=== PATIENT | female | born 1970 | race Caucasian/White ===

== ENCOUNTER → 2017-11-19 20:00 | Outpatient (CLI) | payer MEDICARE, SELFPAY | PROVIDERS: Family Provider Family Medicine; PCP Family Medicine | DX: G47.10 Hypersomnia, unspecified (principal); R06.83 Snoring | CPT/HCPCS: 95810; 95811 ==

== ENCOUNTER → 2017-12-21 20:00 | Outpatient (CLI) | payer MEDICARE, SELFPAY | PROVIDERS: Family Provider Family Medicine; PCP Family Medicine; Visit Provider Nurse Practitioner Acute Care | DX: G47.33 Obstructive sleep apnea (adult) (pediatric) (principal) | CPT/HCPCS: 95811 ==

== ENCOUNTER 2018-04-02 16:18 | Emergency (ER) | payer MEDICARE, SELFPAY ==
[2018-04-02 16:18] VITALS: BP 118/70; PULSE 77; RESP 15; TEMP 36.3; O2SAT 98; BMI 27.4
--- NOTE | 2018-04-02 16:28 | CT_ITS ---
STUDY: CT BRAIN WITHOUT CONTRAST REASON FOR EXAM: Female, 47 years old. Head injury RADIATION DOSAGE (If Supplied By Facility): CTDIvol = ( 44.99 ) mGy, DLP = ( 745.49 ) mGycm TECHNIQUE: Transaxial CT imaging of the brain was performed without administration of intravenous contrast material. Individualized dose optimization techniques were used for this CT. COMPARISON: None. FINDINGS: There is a scalp injury with subcutaneous air of the left frontal region. Normal calvarium. Normal size ventricles and extra-axial spaces for the patient's age. Normal white matter tracts of the cerebral hemispheres. Normal basal ganglia and thalami. Normal brainstem. Normal cerebellum. There is no intracranial hemorrhage. There are no findings of an acute ischemic infarction. There is mucosal thickening of the left maxillary sinus. CT/Brain/Head without Contrast IMPRESSION: Scalp injury with subcutaneous air of the left frontal region. Chronic left maxillary sinusitis. There is no intracranial hemorrhage or calvarial fracture. Electronically Signed: Sai Winters MD at 17:42 EDT , Service support ,
--- NOTE | 2018-04-02 16:48 | ED.DCSUM_ITS ---
- ER Visit Summary Date of Service: 04/02/18 Chief Complaint: [Head injury] History of Present Illness: The patient is a 47 F [presents to the emergency department with a head injury that occurred prior to arrival in the emergency department. Patient states that she accidentally slammed the car trunk on top of her head. No loss of consciousness. Patient did sustain a laceration. Patient is on Xarelto for history of DVT. Patient up-to-date on tetanus.] Physical Examination: [HEENT-PERRLA, EOMI. Cranial nerves II through XII grossly intact. TMs clear. Mucous membranes moist. No adenopathy. Patient has a 3 cm laceration over the frontal scalp that is well approximated. Small amount of blood oozing. No bony step-offs or depressions noted. No hemotympanum. Cardiovascular-regular rate and rhythm without murmur or ectopy Lungs-clear to auscultation, chest wall stable without crepitus or subcu emphysema Abdomen-normoactive bowel sounds, soft, nontender, no rebound or rigidity, no peritoneal signs. Extremities-intact ?4, normal range of motion, normal pulses, atraumatic] Test Results: [CT scan of the brain without contrast ordered and results of which are currently pending] Emergency Department Course and Treatment: [Laceration repair-wound sterilely draped and prepped. Using 1% lidocaine with epinephrine a total of 3 cc used to anesthetize the wound. Wound cleansed with Shur-Clens and irrigated with copious saline. Using 5-0 nylon a total of 4 single interrupted sutures placed with good wound edge approximation. Patient tolerated procedure well.] Treatment Plan: [Patient to have suture removal in 10 days. Patient may be discharged to home as long as her CT scan of her brain is unremarkable. Disposition: [Discharged to home in stable condition] Impression: [Closed head injury Scalp laceration 3 cm-simple repair] This note was generated with Digital [employer]ent dictation software. It may contain incorrect words, spelling, and punctuation that were not noted in review of the chart prior to signing ED Disposition - Plan for ED Patient: Chief Complaint: Laceration Referrals: Lazarus Bustos DO [Primary Care Provider] -
--- NOTE | 2018-04-02 16:48 | ED.DEP ---
ED Disposition - Plan for ED Patient: Chief Complaint: Laceration Instructions: ED Laceration Scalp Stitch Or Stap, ED Head Injury Closed Referrals: Lazarus Bustos DO [Primary Care Provider] - 10 Day for suture removal
== END 2018-04-02 18:01 | disposition home or self-care (01) ==
PROVIDERS: Emergency Provider Emergency Medicine; Family Provider Family Medicine; PCP Family Medicine
DX: S01.01XA Laceration without foreign body of scalp, initial encounter (principal); W22.8XXA Striking against or struck by other objects, initial encounter; Y93.9 Activity, unspecified; Y92.9 Unspecified place or not applicable; F32.9 Major depressive disorder, single episode, unspecified; Z86.718 Personal history of other venous thrombosis and embolism; Z79.01 Long term (current) use of anticoagulants; Z79.899 Other long term (current) drug therapy
CPT/HCPCS: 12002; 70450; 99282

== ENCOUNTER → 2018-10-27 13:44 | Outpatient (CLI) | payer MEDICARE, SELFPAY ==
[2018-10-27 15:21] LABS: Absolute Lymphocyte Count 2.43 X10^3/ul (0.83-4.51); Absolute Neutrophil Count 4.5 X10^3/uL (2.0-7.7); Basophil# 0.03 X10^3/uL; Basophil% 0.4 % (0-1); Eosinophil# 0.13 X10^3/uL; Eosinophils% 1.7 % (0-5); Hematocrit 40.3 % (37-47); Hemoglobin 13.2 g/dl (12.0-15.0); Lymphocyte # 2.43 X10^3/ul (4.0); Lymphocyte % 31.2 % (19-41); Mean Corp Hgb Conc 32.8 g/gl (32-36); Mean Corpuscular Hgb 31.4 pg (27.0-32.0); Mean Corpuscular Volume 95.7 fL (81-99); Mean Platelet Vol. 8.8 fl (6.2-12.0); Monocyte# 0.73 X10^3/uL; Monocyte% 9.4 % (0-10); Neutrophil # 4.46 X10^3/uL (2.7-7.7); Neutrophil % 57.2 % (47-70); Platelet Count 310 K/mm3 (150-450); RBC Distribution Width CV 12.6 % (11.6-14.6); RBC Distribution Width SD 43.6 fl (35.1-43.9); Red Blood Count 4.21 M/mm3 (4.2-5.4); White Blood Count 7.8 K/mm3 (4.4-11.0)
[2018-10-27 15:28] LABS: POSITIVE COUNT NO; POSITIVE DIFFERENTIAL NO; POSITIVE MORPHOLOGY NO
[2018-10-27 16:05] LABS: ALB/GLOB Ratio 0.9 RATIO (0.9-2.4); AST(SGOT) 21 U/L (15-37); Alanine Aminotransfer ALT/SGPT 24 U/L (13-56); Albumin, Serum 3.6 g/dL (3.2-5.0); Alkaline Phosphatase 76 U/L (45-117); Anion Gap 7 (5-15); BUN 14 mg/dL (7-18); BUN/Creat Ratio 21.9 RATIO (10-20); Calcium,Total 8.3 mg/dL (8.5-10.1); Chloride 107 mmol/L (98-107); Cholesterol 129 mg/dL (200); Creatinine, Serum 0.64 mg/dL (0.55-1.02); EST Glomerular Filtration Rate 106 mL/min (>60); Est Glom Filt Rate - Afr Amer 128 mL/min (>60); Globulin 3.9 g/dL (2.2-4.2); Glucose 72 mg/dL (74-106); High Density Lipoprotein 71 mg/dL; Potassium 3.9 mmol/L (3.5-5.1); Protein, Total 7.5 g/dL (6.4-8.2); Sodium Level 141 mmol/L (136-145); Triglycerides 31 mg/dL; Very Low Density Lipoprotein 6 mg/dL (5-40)
== END ==
PROVIDERS: Family Provider Family Medicine; PCP Family Medicine; Referring Provider Family Medicine; Visit Provider Family Medicine
DX: Z00.00 Encounter for general adult medical examination without abnormal findings (principal); D64.9 Anemia, unspecified; E78.5 Hyperlipidemia, unspecified
CPT/HCPCS: 36415; 80053; 80061; 85025

== ENCOUNTER → 2019-02-16 17:39 | Outpatient (CLI) | payer MEDICARE, SELFPAY ==
[2019-02-21 12:29] LABS: HPV Reflexed? NOT INDICATED
== END ==
PROVIDERS: Family Provider Family Medicine; PCP Family Medicine; Referring Provider Obstetrics & Gynecology; Visit Provider Obstetrics & Gynecology
DX: Z12.4 Encounter for screening for malignant neoplasm of cervix (principal)
CPT/HCPCS: 87624; 88175; G0145

== ENCOUNTER → 2019-03-13 17:11 | Outpatient (CLI) | payer MEDICARE, SELFPAY ==
--- NOTE | 2019-03-13 15:45 | EMB_PTH ---
PATIENT: EZ ELDER LOC: [facility] U#:[id number] AGE/SX: 55/F ROOM: RE03/13/[address]: Dr. Ted Cutler MD : 1970 BED: DIS: SPEC #: [id number] RECD: 03/13/19 17:11 STATUS: EMANUEL REAlex #: [id number] ADDY: 03/13/19 15:[address]: Ted Cutler DEPT: SURGICAL PATHOLOGY RECD BY: Bianca Marley ENTERED: 03/14/19 11:42 SP TYPE: ENDOM BX/C YEYO DR: Dr. Janeth Ferreira MD Tissues: Endometrium, NOS Procedures: Surgery Specimen Level IV HEADER OPERATION: Endometrial biopsy PRE-OP DIAGNOSIS: N93.6, N92.6 TISSUE SUBMITTED: Endometrial biopsy MICROSCOPIC DIAGNOSIS Endometrial biopsy: Weakly proliferative endometrium with glandular and stromal breakdown. SJ:aida 03/15/19 MICROSCOPIC DESCRIPTION Slides are reviewed. GROSS DESCRIPTION Received in fixative is one container labeled with the patient's name and designated EM biopsy. The specimen consists of multiple fragments of hemorrhagic soft tissue that in aggregate measure 1.5 x 1.5 x 0.1 cm. The specimen is totally submitted in one cassette. / SJ:aida 03/14/19 TC:5 CPT: 18478
== END ==
PROVIDERS: Family Provider Family Medicine; PCP Family Medicine; Referring Provider Obstetrics & Gynecology; Visit Provider Obstetrics & Gynecology
DX: N92.6 Irregular menstruation, unspecified (principal)
CPT/HCPCS: 88305

== ENCOUNTER → 2019-03-15 14:25 | Outpatient (CLI) | payer MEDICARE, SELFPAY ==
[2018-05-30 14:08] VITALS: BMI 27.2
--- NOTE | 2019-03-15 14:38 | BI_ITS ---
MAMMOGRAPHY - BILATERAL SCREENING REASON FOR EXAM: Female, 48 years old. Routine annual screening examination. PERTINENT HISTORY: Grandmother with breast cancer. TECHNIQUE: Digital bilateral breast agustin (3D mammographic acquisition) in the CC and MLO projections. 2-D mediolateral oblique (MLO) and craniocaudad (CC) views of both breasts were obtained. CAD: Full Field Digital Mammography with Computer Added Detection was performed. COMPARISON: Comparison is made with prior study dated February 02, 2017 and March 05, 2015. FINDINGS: Breast Composition: There are scattered areas of fibroglandular density. There are no dominant masses or suspicious calcifications. No other significant abnormalities are identified. There has been no significant change since the prior study. BI/SCREENING MAMM (CAD), BILAT IMPRESSION: Stable bilateral screening mammogram. Yearly follow-up mammogram recommended. (A) ASSESSMENT CATEGORY: BIRADS Category 1: Negative. A letter regarding these results will be sent to the patient by the facility within 30 days. Approximately 10% of breast cancers are not detected by mammography. A normal mammogram should not delay biopsy of a clinically suspicious abnormality. [id number] Electronically Signed: Frandy Rubio, at 9:43 EDT , Service support ,
== END ==
PROVIDERS: Family Provider Family Medicine; PCP Family Medicine; Referring Provider Obstetrics & Gynecology; Visit Provider Obstetrics & Gynecology
DX: Z12.31 Encounter for screening mammogram for malignant neoplasm of breast (principal)
CPT/HCPCS: 77063; 77067

== ENCOUNTER 2019-04-17 08:34 | Day surgery (SDC) | payer MEDICARE, SELFPAY ==
[2019-04-10 16:07] LABS: ALB/GLOB Ratio 0.9 RATIO (0.9-2.4); AST(SGOT) 24 U/L (15-37); Alanine Aminotransfer ALT/SGPT 23 U/L (13-56); Albumin, Serum 3.5 g/dL (3.2-5.0); Alkaline Phosphatase 71 U/L (45-117); Anion Gap 5 (5-15); BUN 13 mg/dL (7-18); Calcium,Total 8.2 mg/dL (8.5-10.1); Chloride 108 mmol/L (98-107); Creatinine, Serum 0.72 mg/dL (0.55-1.02); EST Glomerular Filtration Rate 92 mL/min (>60); Est Glom Filt Rate - Afr Amer 111 mL/min (>60); Globulin 4.1 g/dL (2.2-4.2); Glucose 75 mg/dL (74-106); Potassium 3.7 mmol/L (3.5-5.1); Protein, Total 7.6 g/dL (6.4-8.2); Sodium Level 142 mmol/L (136-145)
[2019-04-10 16:46] LABS: Hematocrit 39.3 % (37-47); Mean Corp Hgb Conc 33.1 g/gl (32-36); Mean Corpuscular Hgb 31.4 pg (27.0-32.0); Mean Corpuscular Volume 94.9 fL (81-99); Mean Platelet Vol. 8.8 fl (6.2-12.0); Platelet Count 326 K/mm3 (150-450); RBC Distribution Width CV 12.2 % (11.6-14.6); RBC Distribution Width SD 41.7 fl (35.1-43.9); Red Blood Count 4.14 M/mm3 (4.2-5.4); White Blood Count 6.8 K/mm3 (4.4-11.0)
[2019-04-10 16:52] LABS: International Normalized Ratio 1.2; Partial Thromboplast Time 32.4 Seconds (24.1-36.2)
[2019-04-10 17:28] LABS: Scan Indicated on CBC? Y/N NO
--- NOTE | 2019-04-16 23:01 | HP.PCM_ITS ---
History and Physical Date of Admission: 04/17/19 Surgical History and Physical Shital Pro, a 48 year old female 1 0 0 0 1, presents for HTA, Hysteroscopy and D and C on April 17, 2019 at 11:30. -- Menorrhagia -- Menses heavier than desired which began months ago. Shital claims it started gradually. It occurs intermittantly. Severity is moderate and very concerned; Associated signs and symptoms are flashes.; Associated signs and symptoms are moodiness. Additional comments are: on menses at present.; Additional comments are: u/s normal. EMBx OK; Additional comments are: on Xarelto for hx blood clots--last in 2014. Bridged to Lovenox for this surgery and stopped Xarelto about 5 days ago. MEDICATIONS HISTORY: Current medications prescribed by our practice are: 1. Lovenox 30 mg/0.3 mL subcutaneous syringe, as directed QAM sq for 5 days before surgery Patient is also takin. Iron (ferrous sulfate) 325 mg (65 mg iron) Tablet 2. Lexapro 10 mg Tablet 3. multivitamin Tablet 4. buspirone 5 mg tablet, 1 PO BID 5. Xarelto 10 mg tablet, One pill by mouth once a day ALLERGIES: NKA Infections - tooth, sinus Illnesses - depression, back pain, ulcers and inability to sweat Accidents - no injuries of consequence Hospitalizations - Childbirth hx suicide attempt at 13 yrs of age; Review of Systems: GENERAL - Denies fever, or chills SKIN - Denies skin changes EYES - Denies visual changes EARS - Denies difficulty hearing NOSE - Denies nasal congestion or bleeding MOUTH - Denies sore throat or difficulty swallowing NECK - Denies pain or swelling RESPIRATORY - Denies shortness of breath or wheezing CARDIOVASCULAR - Denies palpitations or chest pain GASTROINTESTINAL - Denies nausea, vomiting, diarrhea, constipation GENITOURINARY - Denies dysuria, frequency of urination, incontinence of urine MUSCULOSKELETAL - Denies joint or muscle pain NEUROLOGICAL - Denies localized numbness or weakness PSYCHIATRIC - Denies depression or anxiety ENDOCRINE - Denies heat or cold intolerance, weight loss or gain HEMATO-IMMUNOLOGIC - Denies excesive bleeding with cuts SOCIAL HISTORY: Alcohol Use - drinks occasionally Smoking - used to smoke but quit Diet - no special diet Lifestyle - moderate stress lifestyle Exercise - intermittent Seat Belt Use - always Job Description - Disability Illicit Drug Use - used street drugs before but quit Sexual Activity - single sexual partner Residence - lives with daughter Children Name(s) - Lizzeth Control - Essure and confirmed with [facility] FAMILY HISTORY: Father: DM II. Paternal Grandmother: Breast cancer. MENSTRUAL HISTORY: LMP Known?- DefiniteAmount/Duration - 4 days, Regularity - Irregular, Frequency - monthly days, LMP - 04/03/19, Age Onset Menarche - 13 PAST PREGNANCIES: Total Pregnancies - 1; Full Term Pregnancies - 1; Premature - 0; Abortions, Induced - 0; Abortions, Spontaneous - 0; Ectopics - 0; Multiple Births - 0; Living Children - 1 SURGICAL HISTORY: 1. [place] Teeth Removal, 94 ; - 2. 03/17/2012 [facility] ; Ted Cutler M.D. - PHYSICAL EXAM BP- 108/70 Sitting, Right arm, regular cuff Temp- 98.1 Taken Orally Weight- 152.21181 lbs Height- 62.5 inch BMI:27.42 CONSTITUTIONAL - NAD, well nourished, and well developed SKIN - No rash, lesions, or ulcers HEENT - Normocephalic, PERRLA, EOMI NECK - No nodes, no nuchal rigidity and thyroid normal size and texture LYMPH NODES - Palpation of lymph nodes in neck and groins within normal limits LUNGS - CTA x2 without wheezes, crackles or rales CARDIAC - Regular rate and rhythm without rubs, murmurs, or gallops BREAST - No dominant masses, no tenderness, no axillary adenopathy, no nipple discharge, no skin changes ABDOMEN - Without hepatosplenomegaly, distention, masses, rebound, or guarding; normal bowel sounds; no hernias EXTREMITIES - No edema or calf tenderness NEUROLOGICAL - Cranial nerves II-XII grossly intact PSYCHIATRIC - A and O to time, place, person, mood and affect DETAILED PELVIC EXAM External Genital Vagina - non-tender without lesions Urethra/Urethral Meatus - non-tender Bladder - non-tender Vagina - vaginal mckinley are pink and moist without loss of rugae and no evidence of atropy Cervix - without cervical motion tenderness and has normal size and features without evident lesions Uterus - multiparous size 6 cm & wt 75-125 g Adnexa - clear without masses or tenderness ASSESSMENT/PLAN: 1. Menorrhagia Reviewed normal pelvic u/s with patient and EMBx. Probably due to Xarelto. Discussed options for treatment and plan to proceed with D and C, H/S, and HTA. Discussed RBAS and all questions answered.
[2019-04-17] VITALS (11 sets, daily range): BP systolic 98–136; BP diastolic 63–85; PULSE 52–82; RESP 16–18; TEMP 36.2–36.8; O2SAT 94–100; BMI 26.7
--- NOTE | 2019-04-17 10:05 | EMB_PTH ---
PATIENT: EZ ELDER LOC: [facility] U#:[id number] AGE/SX: 48/F ROOM: RE04/17/[address]: Dr. Ted Cutler MD : 1970 BED: DIS: 04/17/2019 SPEC #: [id number] RECD: 04/17/19 13:41 STATUS: EMANUEL REAlex #: [id number] ADDY: 04/17/19 10:[address]: Ted Cutler DEPT: SURGICAL PATHOLOGY RECD BY: Ash Victoria ENTERED: 04/17/19 13:57 SP TYPE: ENDOM BX/C OTHR DR: Dr. Janeth Ferreira MD Tissues: Endometrium, NOS Procedures: Surgery Specimen Level IV HEADER OPERATION: Hysteroscopy, hydroablation, D & C PRE-OP DIAGNOSIS: Menorrhagia TISSUE SUBMITTED: Endometrial curettings MICROSCOPIC DIAGNOSIS Endometrium, curettings: Proliferative endometrium with focal glandular breakdown. Benign fragments of endocervix and ectocervix. Mild chronic endometritis. AM:aida 04/18/19 MICROSCOPIC DESCRIPTION Slides are reviewed. GROSS DESCRIPTION Received in fixative is one container labeled with the patient's name and designated endometrial curettings. The specimen consists of multiple mucoid fragments of pink-jasso soft tissue that in aggregate measure 1.8 x 1 x 0.1 cm. The specimen is totally submitted in one cassette. / AM:aida 04/17/19 TC:3 CPT: 22057
--- NOTE | 2019-04-17 11:01 | OP.PCM_ITS ---
Report of Operation Date of Procedure: 04/17/19 Pre-Operative Diagnosis: Menorrhagia Post-Operative Diagnosis: Menorrhagia Surgery/Procedure Performed:: Diagnostic Hysteroscopy, Dilation and Curettage, Hydrothermal Ablation Description of Surgical Findings:: 8 cm endometrial cavity without polyps or fibroids Type of Anesthesia:: General - LMA Anesthesiologist: Dylan Doss Estimated Blood Loss (mL): Minimal Fluids Replaced: Crystalloid Description of Procedure: Surgeon: Ted Cutler MD, FACOG Indication: This is a 48 year old patient who has been having problems with extremely heavy menses. Conservative measures have not been helpful. Endometrial sampling was benign and pelvic ultrasound showed that ablation may be helpful. Pt has been counseled regarding the risks, benefits and alternatives of this procedure and all questions answered. She understands that only about half of patients will have amenorrhea after this procedure. Procedure: Patient taken to the operating room where after induction of general anesthesia the patient was prepped and draped in the usual sterile fashion. Bladder was drained of urine with a catheter. Anterior cervix grasped and cervix was dilated to about 17 Syriac size. Hysteroscopic hydrothermal ablation (HTA) unit was placed in the cervix and the above findings were noted. HTA unit was removed and the uterus was gently curetted removing all contents. An HTA ablation cycle was then carried out at about 90 degrees Centigrade for 10 minutes with virtually no fluid loss during the procedure. After an appropriate cool down the HTA unit was removed with minimal bleeding noted. The patient tolerated the procedure well and was taken to the recovery room in satisfactory condition. Sponge, instruments and needle counts were all correct. There were no apparent complications of the surgery. Cefotan 2 gms IV was given prior to the procedure. Estimated Blood Loss: Minimal Specimen to Pathology: Endometrial Curettings Grafts/Implants Used: none - Complications none - Admit VTE Documentation VTE Present on Admission: Yes VTE Mechan Device Prophylaxis: SCD's VTE Pharm Prophylaxis ordered?: Yes
--- NOTE | 2019-04-17 11:01 | PCM.DC.D&C ---
Discharge Diet: No Restrictions Discharge Activity: Return to Normal Activity, May Shower, May Take a Tub Bath - in 2 weeks. May resume sexual activity in: 4 weeks Call your doctor if you observe: Fever of 101 or Higher, Inability to urinate, Inability to have a bowel movement, Using more than one pad per hour Additional Instructions: Restart Xarelto later today as discussed and stop the Lexapro. Allergies/Adverse Reactions: Allergies No Known Allergies Allergy (Verified 04/10/19 13:17) Medications to take at Discharge Rivaroxaban [Xarelto] 10 mg PO DAILY 04/02/18 Escitalopram Oxalate [Lexapro] 20 mg PO DAILY 04/10/19 Iron Carbonyl [Feosol] 45 mg PO DAILYCM 04/10/19 busPIRone [Buspar] 5 mg PO BID 04/10/19 Enoxaparin Sodium [Lovenox] 30 mg SC DAILY 04/17/19 Oxycodone [Oxyir] 5 mg PO Q6H PRN PRN 7 Days #10 tab 04/17/19 The following prescriptions were given: Oxycodone [Oxyir] 5 mg PO Q6H PRN PRN 7 Days #10 tab PRN Reason: Severe Pain (-08/17) Primary Care Physician: Janeth Ferreira MD [Primary Care Provider] - Test Results: Test results from this visit will be discussed in further detail at your follow-up appointment, if applicable. Please Follow Up With: Ted Cutler MD When: 3-4 weeks
--- NOTE | 2019-04-17 11:04 | DCINST_ITS ---
Discharge Diet: No Restrictions Discharge Activity: Return to Normal Activity, May Shower, May Take a Tub Bath - in 2 weeks. May resume sexual activity in: 4 weeks Call your doctor if you observe: Fever of 101 or Higher, Inability to urinate, Inability to have a bowel movement, Using more than one pad per hour Additional Instructions: Restart Xarelto later today as discussed and stop the Lexapro. Allergies/Adverse Reactions: Allergies No Known Allergies Allergy (Verified 04/10/19 13:17) Medications to take at Discharge Rivaroxaban [Xarelto] 10 mg PO DAILY 04/02/18 Escitalopram Oxalate [Lexapro] 20 mg PO DAILY 04/10/19 Iron Carbonyl [Feosol] 45 mg PO DAILYCM 04/10/19 busPIRone [Buspar] 5 mg PO BID 04/10/19 Enoxaparin Sodium [Lovenox] 30 mg SC DAILY 04/17/19 Oxycodone [Oxyir] 5 mg PO Q6H PRN PRN 7 Days #10 tab 04/17/19 The following prescriptions were given: Oxycodone [Oxyir] 5 mg PO Q6H PRN PRN 7 Days #10 tab PRN Reason: Severe Pain (-08/17) Primary Care Physician: Janeth Ferreira MD [Primary Care Provider] - Test Results: Test results from this visit will be discussed in further detail at your follow- up appointment, if applicable. Please Follow Up With: Ted Cutler MD When: 3-4 weeks
== END 2019-04-17 15:20 | disposition home or self-care (01) ==
LOC: SDC 08:34 → AC 08:36
PROVIDERS: Family Provider Family Medicine; PCP Family Medicine; Referring Provider Obstetrics & Gynecology; Visit Provider Obstetrics & Gynecology
PROC: 0U5B8ZZ Destruction of Endometrium, Via Natural or Artificial Opening Endoscopic (ICD-10-PCS; CPT 58563; principal; 2019-04-17 09:50)
DX: N71.1 Chronic inflammatory disease of uterus (principal); N92.0 Excessive and frequent menstruation with regular cycle; D64.9 Anemia, unspecified; F32.9 Major depressive disorder, single episode, unspecified; F41.9 Anxiety disorder, unspecified; G47.30 Sleep apnea, unspecified; Z86.718 Personal history of other venous thrombosis and embolism; Z79.01 Long term (current) use of anticoagulants; Z79.899 Other long term (current) drug therapy; Z87.891 Personal history of nicotine dependence
CPT/HCPCS: 00952; 58563; 36415; 80053; 85027; 85610; 85730; 86850; 86900; 88305; J7120; J2405

== ENCOUNTER → 2020-07-31 14:12 | Outpatient (CLI) | payer MEDICARE, MEDICAID, SELFPAY ==
[2019-04-17 08:51] VITALS: BMI 26.7
--- NOTE | 2020-07-31 14:15 | BI_ITS ---
MAMMOGRAPHY - BILATERAL SCREENING REASON FOR EXAM: Female, 49 years old. Routine annual screening examination. PERTINENT HISTORY: Grandmother with breast cancer. TECHNIQUE: Digital bilateral breast dilia (3D mammographic acquisition) in the CC and MLO projections. 2-D mediolateral oblique (MLO) and craniocaudad (CC) views of both breasts were obtained. CAD: Full Field Digital Mammography with Computer Added Detection was performed. COMPARISON: Comparison is made with prior examination dated 03/15/2019 and 02/02/2017. FINDINGS: Breast Composition: There are scattered areas of fibroglandular density. There are no dominant masses or suspicious calcifications. There is a 4 mm x 5 mm well-defined nodule in the deep central slightly lateral portion of the right breast. Correlation with ultrasound is recommended. No other significant abnormalities are identified. BI/SCREEN MAMM (CAD) W/DILIA BILAT IMPRESSION: 4 mm x 5 mm well-defined nodule in the deep central slightly lateral portion of the right breast. Correlation with ultrasound is recommended. ASSESSMENT CATEGORY: BIRADS Category 0: Incomplete. Need additional imaging evaluation. A letter regarding these results will be sent to the patient by the facility within 30 days. Approximately 10% of breast cancers are not detected by mammography. A normal mammogram should not delay biopsy of a clinically suspicious abnormality. [id number] Electronically Signed: Frandy Rubio, at 15:44 EDT , Service support ,
== END ==
PROVIDERS: PCP Family Medicine; Referring Provider Obstetrics & Gynecology; Visit Provider Obstetrics & Gynecology
DX: Z12.31 Encounter for screening mammogram for malignant neoplasm of breast (principal)
CPT/HCPCS: 77063; 77067

== ENCOUNTER → 2020-08-12 14:58 | Outpatient (CLI) | payer MEDICARE, MEDICAID, SELFPAY ==
[2019-04-17 08:51] VITALS: BMI 26.7
--- NOTE | 2020-08-12 14:59 | US_ITS ---
STUDY: ULTRASOUND BREAST - RIGHT REASON FOR EXAM: Female, 49 years old. Mammographic abnormality TECHNIQUE: Axial and longitudinal images of the RIGHT breast were performed with a high resolution ultrasound transducer. # OF IMAGES: 22 COMPARISON: None. FINDINGS: RIGHT Breast: There is a septated cystic lesion #1 in the lower outer quadrant. The lesion measures 7 x 7 x 3 mm in size. Clock notation: 8 o''clock position. Distance from nipple: 4 cm. Posterior Enhancement: Yes. Posterior Shadowing: None. Margins: Sharp and smooth. Echogenicity: Septated Compression effect on Shape: No change. US/Breast Limited Unilateral IMPRESSION: Probably gland lesion. Follow-up in 6 months is recommended. ASSESSMENT CATEGORY: BIRADS Category 3: Probably Benign - Short-Interval Follow-up Suggested. A letter regarding these results will be sent to the patient by the facility within 30 days. Electronically Signed: Vic Power, at 12:06 EDT Tel , Service support ,
== END ==
PROVIDERS: PCP Family Medicine; Referring Provider Obstetrics & Gynecology; Visit Provider Obstetrics & Gynecology
DX: R92.8 Other abnormal and inconclusive findings on diagnostic imaging of breast (principal)
CPT/HCPCS: 76642

== ENCOUNTER → 2020-10-11 14:56 | Outpatient (CLI) | payer MEDICARE, MEDICAID, SELFPAY ==
[2019-04-17 08:51] VITALS: BMI 26.7
[2020-10-11 17:40] LABS: Absolute Lymphocyte Count 2.98 X10^3/uL (0.83-4.51); Absolute Neutrophil Count 6.9 X10^3/uL (2.0-7.7); Basophil# 0.05 X10^3/uL; Basophil% 0.5 % (0-1); Eosinophil# 0.17 X10^3/uL; Eosinophils% 1.6 % (0-5); Hematocrit 40.8 % (37-47); Hemoglobin 13.2 g/dL (12.0-15.0); Lymphocyte # 2.98 X10^3/ul (4.0); Lymphocyte % 27.4 % (19-41); Mean Corp Hgb Conc 32.4 g/dL (32-36); Mean Corpuscular Hgb 32.4 pg (27.0-32.0); Mean Corpuscular Volume 100.2 fL (81-99); Mean Platelet Vol. 8.7 fl (6.2-12.0); Monocyte# 0.79 X10^3/uL; Monocyte% 7.3 % (0-10); NRBC Flagged by Analyzer 0 % (0-5); Neutrophil # 6.86 X10^3/uL (2.7-7.7); Neutrophil % 62.9 % (47-70); Platelet Count 391 K/mm3 (150-450); RBC Distribution Width CV 11.8 % (11.6-14.6); RBC Distribution Width SD 43.2 fl (35.1-43.9); Red Blood Count 4.07 M/mm3 (4.2-5.4); White Blood Count 10.9 K/mm3 (4.4-11.0)
[2020-10-11 18:19] LABS: ALB/GLOB Ratio 0.9 RATIO (0.9-2.4); AST(SGOT) 14 U/L (15-37); Alanine Aminotransfer ALT/SGPT 20 U/L (13-56); Albumin, Serum 3.6 g/dL (3.2-5.0); Alkaline Phosphatase 87 U/L (45-117); Anion Gap 5 (5-15); BUN 13 mg/dL (7-18); BUN/Creat Ratio 17.2 RATIO (10-20); Calcium,Total 8.6 mg/dL (8.5-10.1); Chloride 108 mmol/L (98-107); Creatinine, Serum 0.75 mg/dL (0.55-1.02); EST Glomerular Filtration Rate 87 mL/min (>60); Est Glom Filt Rate - Afr Amer 105 mL/min (>60); Globulin 4.2 g/dL (2.2-4.2); Glucose 86 mg/dL (74-106); Potassium 3.7 mmol/L (3.5-5.1); Protein, Total 7.8 g/dL (6.4-8.2); Sodium Level 143 mmol/L (136-145)
== END ==
PROVIDERS: PCP Family Medicine; Visit Provider Family Medicine
DX: K21.9 Gastro-esophageal reflux disease without esophagitis (principal); K44.9 Diaphragmatic hernia without obstruction or gangrene; Z79.01 Long term (current) use of anticoagulants
CPT/HCPCS: 36415; 80053; 85025

== ENCOUNTER → 2020-10-21 08:15 | Outpatient (CLI) | payer MEDICARE, MEDICAID, SELFPAY ==
[2019-04-17 08:51] VITALS: BMI 26.7
--- NOTE | 2020-10-21 08:17 | RAD_ITS ---
EXAMINATION: UPPER GI SERIES INDICATION: Female, 50 years palpable lump under the left lower ribs. FLUOROSCOPY TIME (if supplied): (0:35) minutes/seconds TECHNIQUE: Radiographic and fluoroscopic images of the distal esophagus, stomach, and proximal small intestine were obtained following the oral ingestion of barium. COMPARISON: None. FINDINGS: There is no evidence for organomegaly, abnormal calcifications, or abnormal bowel gas pattern. The psoas margins and flank stripes are normal. The visualized osseous structures are normal. The mucosa of the esophagus, stomach and duodenum is normal in appearance without evidence for stricture, ulceration, mass or diverticulum. There is no evidence for hiatal hernia or gastroesophageal reflux. RAD/Upper GI Dual Contrast IMPRESSION: 1. Normal upper gastrointestinal study. Electronically Signed: Frandy Rubio, at 13:44 EST , Service support ,
== END ==
PROVIDERS: PCP Family Medicine; Referring Provider Family Medicine; Visit Provider Family Medicine
DX: K21.9 Gastro-esophageal reflux disease without esophagitis (principal); K44.9 Diaphragmatic hernia without obstruction or gangrene
CPT/HCPCS: 74240; 74246

== ENCOUNTER → 2021-02-24 13:50 | Outpatient (CLI) | payer MEDICARE, MEDICAID, SELFPAY ==
[2019-04-17 08:51] VITALS: BMI 26.7
--- NOTE | 2021-02-24 13:54 | US_ITS ---
STUDY: ULTRASOUND BREAST - RIGHT REASON FOR EXAM: Female, 50 years old. 6 month follow-up examination. TECHNIQUE: Axial and longitudinal images of the RIGHT breast were performed with a high resolution ultrasound transducer. # OF IMAGES: 22 COMPARISON: Comparison is made with prior ultrasound of the right breast dated 08/12/2020. FINDINGS: RIGHT Breast: The lower outer quadrant of the right breast was examined by ultrasound. No sonographic abnormality is seen at this time. US/Breast Limited Unilateral IMPRESSION: No sonographic abnormality is seen at this time. ASSESSMENT CATEGORY: BIRADS Category 1: Negative. A letter regarding these results will be sent to the patient by the facility within 30 days. Electronically Signed: Frandy Rubio MD at 15:04 EDT , Service support ,
== END ==
PROVIDERS: PCP Family Medicine; Referring Provider Family Medicine; Visit Provider Family Medicine
DX: R92.8 Other abnormal and inconclusive findings on diagnostic imaging of breast (principal)
CPT/HCPCS: 76642

== ENCOUNTER 2021-11-10 14:45 | Outpatient (CLI) | payer MEDICARE, MEDICAID, SELFPAY ==
[2021-11-10 15:14] LABS: Absolute Lymphocyte Count 2.67 X10^3/uL (0.83-4.51); Absolute Neutrophil Count 6.9 X10^3/uL (2.0-7.7); Basophil# 0.03 X10^3/uL; Basophil% 0.3 % (0-1); Eosinophil# 0.16 X10^3/uL; Eosinophils% 1.5 % (0-5); Hemoglobin 13.6 g/dL (12.0-15.0); Lymphocyte # 2.67 X10^3/ul (0.83-4.51); Lymphocyte % 25.5 % (19-41); Mean Corp Hgb Conc 33.2 g/dL (32-36); Mean Corpuscular Hgb 32.1 pg (27.0-32.0); Mean Corpuscular Volume 96.7 fL (81-99); Mean Platelet Vol. 8.4 fl (6.2-12.0); Monocyte# 0.72 X10^3/uL; Monocyte% 6.9 % (0-10); NRBC Flagged by Analyzer 0 % (0-5); Neutrophil # 6.87 X10^3/uL (2.7-7.7); Neutrophil % 65.4 % (47-70); Platelet Count 308 K/mm3 (150-450); RBC Distribution Width SD 42.8 fl (35.1-43.9); Red Blood Count 4.24 M/mm3 (4.2-5.4); White Blood Count 10.5 K/mm3 (4.4-11.0)
[2021-11-10 15:52] LABS: ALB/GLOB Ratio 0.8 RATIO (0.9-2.4); AST(SGOT) 23 U/L (15-37); Alanine Aminotransfer ALT/SGPT 25 U/L (13-56); Albumin, Serum 3.5 g/dL (3.2-5.0); Alkaline Phosphatase 74 U/L (45-117); Anion Gap 6 (5-15); BUN 12 mg/dL (7-18); BUN/Creat Ratio 19.2 RATIO (10-20); Calcium,Total 8.5 mg/dL (8.5-10.1); Chloride 107 mmol/L (98-107); Cholesterol 142 mg/dL (200); Creatinine, Serum 0.62 mg/dL (0.55-1.02); EST Glomerular Filtration Rate 107 mL/min (>60); Est Glom Filt Rate - Afr Amer 130 mL/min (>60); Globulin 4.2 g/dL (2.2-4.2); Glucose 82 mg/dL (74-106); High Density Lipoprotein 70 mg/dL; Potassium 3.4 mmol/L (3.5-5.1); Protein, Total 7.7 g/dL (6.4-8.2); Sodium Level 139 mmol/L (136-145); Triglycerides 76 mg/dL; Very Low Density Lipoprotein 15 mg/dL (5-40)
== END 2021-11-10 23:59 | disposition short-term general hospital (02) ==
LOC: LAB 14:46
PROVIDERS: PCP Family Medicine; Referring Provider Family Medicine; Visit Provider Family Medicine
DX: Z00.00 Encounter for general adult medical examination without abnormal findings (principal); F32.9 Major depressive disorder, single episode, unspecified; E78.5 Hyperlipidemia, unspecified; Z79.01 Long term (current) use of anticoagulants; Z83.3 Family history of diabetes mellitus
CPT/HCPCS: 36415; 80053; 80061; 85025

== ENCOUNTER 2021-11-18 15:40 | Outpatient (CLI) | payer MEDICARE, MEDICAID, SELFPAY ==
--- NOTE | 2021-11-18 15:43 | BI_ITS ---
MAMMOGRAPHY - BILATERAL SCREENING REASON FOR EXAM: Female, 51 years old. Routine annual screening examination. PERTINENT HISTORY: Grandmother with breast cancer. History of prior right ultrasound-guided breast biopsy. TECHNIQUE: Digital bilateral breast dilia (3D mammographic acquisition) in the CC and MLO projections. 2-D mediolateral oblique (MLO) and craniocaudad (CC) views of both breasts were obtained. CAD: Full Field Digital Mammography with Computer Added Detection was performed. COMPARISON: Comparison is made with prior study 07/31/2020 and 03/15/2019. FINDINGS: Breast Composition: There are scattered areas of fibroglandular density. There are no dominant masses or suspicious calcifications. No other significant abnormalities are identified. There has been no significant change since the prior study. BI/SCRN MAMM (CAD)W/DILIA BILAT IMPRESSION: Stable bilateral screening mammogram. Yearly follow-up mammogram recommended. (A) ASSESSMENT CATEGORY: BIRADS Category 1: Negative. A letter regarding these results will be sent to the patient by the facility within 30 days. Approximately 10% of breast cancers are not detected by mammography. A normal mammogram should not delay biopsy of a clinically suspicious abnormality. [id number] Electronically Signed: Frandy Rubio MD at 8:33 EST , Service support ,
== END 2021-11-18 23:59 | disposition short-term general hospital (02) ==
LOC: OPBI 15:40
PROVIDERS: PCP Family Medicine; Referring Provider Family Medicine; Visit Provider Family Medicine
DX: Z12.31 Encounter for screening mammogram for malignant neoplasm of breast (principal); Z80.3 Family history of malignant neoplasm of breast
CPT/HCPCS: 77063; 77067

== ENCOUNTER → 2022-12-04 | Outpatient (CLI) | payer MEDICARE, MEDICAID, SELFPAY ==
[2022-12-04 14:37] LABS: Absolute Lymphocyte Count 2.69 X10^3/uL (0.83-4.51); Absolute Neutrophil Count 4.7 X10^3/uL (2.0-7.7); Basophil# 0.04 X10^3/uL; Basophil% 0.5 % (0-1); Eosinophil# 0.28 X10^3/uL; Eosinophils% 3.3 % (0-5); Hematocrit 44.1 % (37-47); Hemoglobin 14.4 g/dL (12.0-15.0); Lymphocyte # 2.69 X10^3/ul (0.83-4.51); Lymphocyte % 31.4 % (19-41); Mean Corp Hgb Conc 32.7 g/dL (32-36); Mean Corpuscular Hgb 31.6 pg (27.0-32.0); Mean Corpuscular Volume 96.7 fL (81-99); Mean Platelet Vol. 8.7 fl (6.2-12.0); Monocyte# 0.87 X10^3/uL; Monocyte% 10.2 % (0-10); NRBC Flagged by Analyzer 0 % (0-5); Neutrophil # 4.66 X10^3/uL (2.7-7.7); Neutrophil % 54.2 % (47-70); Platelet Count 399 K/mm3 (150-450); RBC Distribution Width CV 12.5 % (11.6-14.6); RBC Distribution Width SD 44.7 fl (35.1-43.9); Red Blood Count 4.56 M/mm3 (4.2-5.4); White Blood Count 8.6 K/mm3 (4.4-11.0)
[2022-12-04 14:59] LABS: ALB/GLOB Ratio 0.8 RATIO (0.9-2.4); AST(SGOT) 25 U/L (15-37); Alanine Aminotransfer ALT/SGPT 27 U/L (13-56); Albumin, Serum 3.4 g/dL (3.2-5.0); Alkaline Phosphatase 93 U/L (45-117); Anion Gap 8 (5-15); BUN 11 mg/dL (7-18); BUN/Creat Ratio 14.6 RATIO (10-20); Calcium,Total 8.6 mg/dL (8.5-10.1); Chloride 108 mmol/L (98-107); Cholesterol 151 mg/dL (200); Creatinine, Serum 0.75 mg/dL (0.55-1.02); EST Glomerular Filtration Rate 86 mL/min (>60); Est Glom Filt Rate - Afr Amer 104 mL/min (>60); Globulin 4.1 g/dL (2.2-4.2); Glucose 90 mg/dL (74-106); High Density Lipoprotein 75 mg/dL; Protein, Total 7.5 g/dL (6.4-8.2); Sodium Level 142 mmol/L (136-145); Triglycerides 50 mg/dL; Very Low Density Lipoprotein 10 mg/dL (5-40)
== END | disposition home or self-care (01) ==
LOC: LAB 14:12
PROVIDERS: PCP Family Medicine; Referring Provider Family Medicine; Visit Provider Family Medicine
DX: Z00.00 Encounter for general adult medical examination without abnormal findings (principal); K21.9 Gastro-esophageal reflux disease without esophagitis; E78.5 Hyperlipidemia, unspecified; Z79.01 Long term (current) use of anticoagulants
CPT/HCPCS: 36415; 80053; 80061; 85025

== ENCOUNTER → 2022-12-10 | Outpatient (CLI) | payer MEDICARE, MEDICAID, SELFPAY ==
--- NOTE | 2022-12-10 16:54 | BI_ITS ---
MAMMOGRAPHY - BILATERAL SCREENING REASON FOR EXAM: Female, 52 years old. Routine annual screening examination. PERTINENT HISTORY: Grandmother with breast cancer. TECHNIQUE: Digital bilateral breast dilia (3D mammographic acquisition) in the CC and MLO projections. 2-D mediolateral oblique (MLO) and craniocaudad (CC) views of both breasts were obtained. CAD: Full Field Digital Mammography with Computer Added Detection was performed. COMPARISON: Comparison is made with prior examination dated 11/18/2021 and 07/31/2020. FINDINGS: Breast Composition: There are scattered areas of fibroglandular density. There are no dominant masses or suspicious calcifications. No other significant abnormalities are identified. There has been no significant change since the prior study. BI/SCRN MAMM (CAD)W/DILIA BILAT IMPRESSION: Stable bilateral screening mammogram. Yearly follow-up mammogram recommended. (A) ASSESSMENT CATEGORY: BIRADS Category 1: Negative. A letter regarding these results will be sent to the patient by the facility within 30 days. Approximately 10% of breast cancers are not detected by mammography. A normal mammogram should not delay biopsy of a clinically suspicious abnormality. [id number] Electronically Signed: Frandy Rubio MD at 8:14 EST ,
== END | disposition home or self-care (01) ==
LOC: OPBI 12-11 07:12
PROVIDERS: PCP Family Medicine; Referring Provider Family Medicine; Visit Provider Family Medicine
DX: Z12.31 Encounter for screening mammogram for malignant neoplasm of breast (principal)
CPT/HCPCS: 77063; 77067

== ENCOUNTER → 2023-07-22 | Outpatient (CLI) | payer MEDICAID, SELFPAY ==
[2023-07-22 17:52] LABS: Absolute Lymphocyte Count 2.81 X10^3/uL (0.83-4.51); Absolute Neutrophil Count 3.9 X10^3/uL (2.0-7.7); Basophil# 0.03 X10^3/uL; Basophil% 0.4 % (0-1); Eosinophil# 0.22 X10^3/uL; Eosinophils% 2.9 % (0-5); Hematocrit 41.6 % (37-47); Hemoglobin 13.7 g/dL (12.0-15.0); Lymphocyte # 2.81 X10^3/ul (0.83-4.51); Mean Corp Hgb Conc 32.9 g/dL (32-36); Mean Corpuscular Hgb 31.6 pg (27.0-32.0); Mean Corpuscular Volume 96.1 fL (81-99); Mean Platelet Vol. 9.2 fl (6.2-12.0); Monocyte# 0.66 X10^3/uL; Monocyte% 8.7 % (0-10); NRBC Flagged by Analyzer 0 % (0-5); Neutrophil # 3.86 X10^3/uL (2.7-7.7); Neutrophil % 50.7 % (47-70); Platelet Count 323 K/mm3 (150-450); RBC Distribution Width CV 12.2 % (11.6-14.6); RBC Distribution Width SD 43.2 fl (35.1-43.9); Red Blood Count 4.33 M/mm3 (4.2-5.4); White Blood Count 7.6 K/mm3 (4.4-11.0)
[2023-07-22 18:24] LABS: ALB/GLOB Ratio 0.9 RATIO (0.9-2.4); AST(SGOT) 28 U/L (15-37); Alanine Aminotransfer ALT/SGPT 30 U/L (13-56); Albumin, Serum 3.5 g/dL (3.2-5.0); Alkaline Phosphatase 91 U/L (45-117); Anion Gap 3 (5-15); BUN 13 mg/dL (7-18); BUN/Creat Ratio 18.3 RATIO (10-20); Calcium,Total 8.5 mg/dL (8.5-10.1); Chloride 111 mmol/L (98-107); Creatinine, Serum 0.71 mg/dL (0.55-1.02); EST Glomerular Filtration Rate 92 mL/min (>60); Est Glom Filt Rate - Afr Amer 111 mL/min (>60); Globulin 4.1 g/dL (2.2-4.2); Glucose 88 mg/dL (74-106); Potassium 3.5 mmol/L (3.5-5.1); Protein, Total 7.6 g/dL (6.4-8.2); Sodium Level 140 mmol/L (136-145)
[2023-07-26 14:08] LABS: Endomysial Antibody IgA Negative (Negative); Immunoglobulin A 700 mg/dL (87-352); t-Transglutaminase IgA <2 U/mL (0-3)
== END | disposition home or self-care (01) ==
LOC: LAB 15:53
PROVIDERS: PCP Family Medicine; Referring Provider Internal Medicine; Visit Provider Internal Medicine
DX: K52.9 Noninfective gastroenteritis and colitis, unspecified (principal)
CPT/HCPCS: 36415; 80053; 82784; 83516; 85025; 86255

== ENCOUNTER → 2023-07-24 | Outpatient (CLI) | payer MEDICAID, SELFPAY ==
[2023-07-28 20:07] LABS: Pancreatic Elastase, Fecal 130 (>200)
== END | disposition home or self-care (01) ==
PROVIDERS: PCP Family Medicine; Referring Provider Internal Medicine; Visit Provider Internal Medicine
DX: K52.9 Noninfective gastroenteritis and colitis, unspecified (principal)
CPT/HCPCS: 82653

== ENCOUNTER → 2023-10-21 | Outpatient (CLI) | payer OTHER, SELFPAY ==
[2023-10-27 11:09] LABS: Age Gdln ACOG Testing 30-65 (.); HPV APTIMA, High Risk Negative (Negative)
[2023-10-27 22:51] LABS: HPV Reflexed? YES, CHARGE PATIENT
== END | disposition home or self-care (01) ==
LOC: LABSPEC 13:32
PROVIDERS: PCP Family Medicine; Visit Provider Family Medicine
DX: Z12.4 Encounter for screening for malignant neoplasm of cervix (principal)
CPT/HCPCS: 87624; 88175; G0145

== ENCOUNTER → 2024-10-13 | Outpatient (CLI) | payer OTHER, SELFPAY ==
[2024-10-13 16:42] LABS: Absolute Lymphocyte Count 3.01 X10^3/uL (0.83-4.51); Absolute Neutrophil Count 7.6 X10^3/uL (2.0-7.7); Basophil# 0.08 X10^3/uL; Basophil% 0.7 % (0-1); Eosinophil# 0.26 X10^3/uL; Eosinophils% 2.2 % (0-5); Hematocrit 44.1 % (37-47); Hemoglobin 14.5 g/dL (12.0-15.0); Lymphocyte # 3.01 X10^3/ul (0.83-4.51); Lymphocyte % 25.1 % (19-41); Mean Corp Hgb Conc 32.9 g/dL (32-36); Mean Corpuscular Hgb 31.1 pg (27.0-32.0); Mean Corpuscular Volume 94.6 fL (81-99); Mean Platelet Vol. 8.3 fl (6.2-12.0); Monocyte# 0.95 X10^3/uL; Monocyte% 7.9 % (0-10); NRBC Flagged by Analyzer 0 % (0-5); Neutrophil # 7.62 X10^3/uL (2.7-7.7); Neutrophil % 63.7 % (47-70); Platelet Count 306 K/mm3 (150-450); RBC Distribution Width CV 12.6 % (11.6-14.6); Red Blood Count 4.66 M/mm3 (4.2-5.4)
[2024-10-13 17:21] LABS: AST(SGOT) 26 U/L (15-37); Alanine Aminotransfer ALT/SGPT 38 U/L (13-56); Albumin, Serum 3.7 g/dL (3.2-5.0); Alkaline Phosphatase 102 U/L (45-117); Anion Gap 4 (5-15); BUN 17 mg/dL (7-18); BUN/Creat Ratio 20.4 RATIO (10-20); Chloride 106 mmol/L (98-107); Creatinine, Serum 0.84 mg/dL (0.55-1.02); EST Glomerular Filtration Rate 76 mL/min (>60); Est Glom Filt Rate - Afr Amer 92 mL/min (>60); Ferritin 65 ng/mL (8-252); Globulin 3.8 g/dL (2.2-4.2); Glucose 85 mg/dL (74-106); Potassium 3.6 mmol/L (3.5-5.1); Protein, Total 7.5 g/dL (6.4-8.2); Sodium Level 140 mmol/L (136-145); T4 Free Direct 0.81 ng/dL (0.76-1.46)
== END | disposition home or self-care (01) ==
PROVIDERS: PCP Family Medicine; Referring Provider Family Medicine; Visit Provider Family Medicine
DX: Z00.00 Encounter for general adult medical examination without abnormal findings (principal); K21.9 Gastro-esophageal reflux disease without esophagitis; L65.9 Nonscarring hair loss, unspecified; Z79.01 Long term (current) use of anticoagulants
CPT/HCPCS: 36415; 80053; 82728; 84439; 84443; 85025

== ENCOUNTER → 2024-11-06 | Outpatient (CLI) | payer OTHER, SELFPAY ==
--- NOTE | 2024-11-06 15:46 | BI_ITS ---
MAMMOGRAPHY - BILATERAL SCREENING 3-D TOMOSYNTHESIS REASON FOR EXAM: Female, 54 years old. SCREENING PERTINENT HISTORY: No significant family history. TECHNIQUE: 2-D mammograms and 3-D Tomosynthesis of the breast (s) were performed. CAD was performed. COMPARISON: 12/10/2022 FINDINGS: The breast composition is composed of scattered fibroglandular density. Scattered benign calcifications are seen. No dense spiculated masses or suspicious microcalcifications are identified. No architectural distortion is identified. There is no skin thickening or retraction. There has been no significant change since the prior study. BI/SCRN MAMM (CAD)W/DILIA BILAT IMPRESSION: No mammographic signs of malignancy. Routine yearly mammograms recommended. ASSESSMENT CATEGORY: BIRADS Category 1: Negative. A letter regarding these results will be sent to the patient by the facility within 30 days. FOLLOW UP RECOMMENDATION: Yearly follow up mammogram recommended. (A) Approximately 10% of breast cancers are not detected by mammography. A normal mammogram should not delay biopsy of a clinically suspicious abnormality. Electronically Signed: Cesar Brannon MD at 20:55 EST ,
== END | disposition home or self-care (01) ==
LOC: OPBI 15:41
PROVIDERS: PCP Family Medicine; Referring Provider Family Medicine; Visit Provider Family Medicine
DX: Z12.31 Encounter for screening mammogram for malignant neoplasm of breast (principal)
CPT/HCPCS: 77063; 77067

== ENCOUNTER → 2025-11-03 | Outpatient (CLI) | payer OTHER, SELFPAY ==
--- OUTSIDE RECORDS SUMMARY | 2025-11-03 10:28 | XMS RPT_ITS | CCD ---
Author Organization [facility] Care Team Providers Care Access Control Specialist Name Role Phone None, No PCP Unavailable Unavailable Unavailable Unavailable PCP, Pt States None Referring Unavailable Dr. Vinayak Vargas Attending Unavailable Generic Provider , No Assigned Pcp Primary Car e Provider Unavailable VINAYAK VARGAS Attending Unavailable VINAYAK VARGAS Referring Unavailable GENERIC PROVIDER, NO ASSIGNED PCP Primary Care Unavailable Vinayak Vargas DO Unavailable Janeth Ferreira MD Primary Care Provider VINAYAK VARGAS Attending Unavailable JANETH FERREIRA Primary Care Unavailabl e Janeth Ferreira Referring Unavailable Janeth Ferreira Primary Care Unavailable Janeth Ferreira Attending Unavailable Janeth Ferreira Referring Unavailable Janeth Ferreira Primary Care Unavailable Janeth Ferreira Attending Unavailable Medications Current Medications Medication Drug Class(es) Dates Sig (Normalized) Sig (Original) amylase 498590 unt / lipase 97397 unt / protease 09382 unt delayed release oral capsule (6 sources) Start: 04-10-2024 End: 04-10-2025 take 3 capsules by mouth three times daily ekbdpc-hhsnqjly-dleh ase (Creon) 24,000-76,000 -120,000 unit capsule Indications: Exocrine pancreatic insufficiency (HHS-HCC) Take 3 capsules by mouth 3 times daily (morning, midday, late afternoon). 270 capsule 11 04/10/2024 04/10/2025 Active Start: 03-08-2024 End: 04-10-2024 znxtas-qleazqcm-tccmpsb (Cre on) 24,000-76,000 -120,000 unit capsule Indications: Exocrine pancreatic insufficiency (HHS-HCC) Take 2 capsules by mouth see administration instructions. Take 2-3 Capsules by mouth with meals, 1-2 Capsules by mouth with snacks. Up to 10 capsules daily. 300 capsule 11 03/08/2024 04/10/2024 Discontinued (Med List Cleanup) Start: 08-20-2023 End: 04-10-2024 take 2 capsules by mouth three times daily brpxtv-zdvgmhws-csijzmr (Zenpep) 40,000-126,000- 168,000 unit capsule Indications: Pancreatic insufficiency (HHS-HCC) Take 2 capsules by mouth 3 times a day. 180 capsule 11 08/23/2023 04/10/2024 Discontinued (Med List Cleanup) Start: 08-04-2023 take 2 capsules by m outh four times daily Creon [id number] UNIT Oral Capsule Delayed Release Particles TAKE 2 CAPSULE 4 times daily Quantity: 250 Refills: 5 Ordered: 04-Aug-2023 Vinayak Vargas DO Start : 04-Aug-2023 Active busPIRone hydrochloride 5 mg oral tablet (8 sources) Start: 04-10-2019 take 5 mg by mouth twice daily Buspirone Active 5 MG PO TWICE A DAY April 09, 2019 11:00pm 0.3 ml enoxaparin sodium 100 mg/ml prefilled syringe (3 sources) Low Molecular Weight Heparin Start: 04-17-2019 Enoxaparin (Lovenox) 30 MG/0.3 ML syringe Active 30 MG SC DAILY April 16, 2019 11:00pm escitalopram 20 mg oral tablet (8 sources) Serotonin Reuptake Inhibitor Start: 04-10-2019 take 20 mg by mouth once daily Escitalopram Oxalate Active 20 MG PO DAILY April 09, 2019 11:00pm iron carbonyl 45 mg oral tablet (3 sources) Start: 04-10-2019 take 1 capsule by mouth once daily at mealtime Iron, Carbonyl (Feosol) 45 MG capsule Active 45 MG PO DAILY WITH MEALS April 09, 2019 11:00pm rivaroxaban 10 mg oral tablet (6 sources) Factor Xa Inhibitor Start: 04-02-2018 take 1 tablet by mouth once daily Rivaroxaban (Xarelto) 10 tablet Active 10 MG PO DAILY April 01, 2018 11:00pm will bridge with lovenox as directed Start: 11-25-2015 End: 11-26-2017 take 15 mg by mouth twice daily Rivaroxaban Discontinued 15 MG PO TWICE A DAY November 25, 2015 12:00am November 26, 2017 1:32pm 1000 ml sodium chloride 9 mg /ml injection (1 source) Start: 08-10-2023 sodium chlorid e 0.9% infusion Completed/Discontinued Medications Medication Drug Class(es) Dates Sig (Normalized) Sig (Original) cyclobenzaprine hydrochloride 10 mg oral tablet (3 sources) Muscle Relaxant Start: 7 End: 8 take 10 mg by mouth three times daily Cyclobenzaprine Discontinued 10 MG PO THREE TIMES A DAY May 13, 2017 11:00pm November 26, 2017 1:32pm glucagon (rdna) 1 mg injection (1 source) Antihypoglycemic Agent Start: 3 End: 3 glucagon (Glucagen) injection Meperidine (1 source) Opioid Agonist Start: 3 End: 3 meperidine PF (Demerol) injection 5 ml midazolam 1 mg/ml injection (1 source) Benzodiazepine Start: 3 End: 3 midazolam (Versed) injection oxyCODONE hydrochloride 5 mg oral tablet (3 sources) Opioid Agonist Start: 9 End: 9 take 5 mg by mouth every six hours as needed Oxycodone Discontinued 5 MG PO EVERY 6 HOURS NEEDED 10 7 April 16, 2019 11:00pm April 23, 2019 11:08pm warfarin sodium 1 mg oral tablet (10 sources) Vitamin K Antagonist Start: 3 take 1 tablet by mouth once daily Warfarin Sodium 1 MG Oral Tablet take 1 (ONE) tablet orally daily as directed with 5 (FIVE) mg tab daily] Quantity: 14 Refills: 0 Ordered: 28-Jun-2023 DO Start : 28-Jun-2023 Active Start: 06-25-2023 take 1 tablet by adeline th once daily Warfarin Sodium 5 MG Oral Tablet TAKE 1 TABLET BY MOUTH DAILY DIRECTED Quantity: 30 Refills: 0 Ordered: 25-Jun-2023 DO Start : 25-Jun-2023 Active Problems Active Problems Problem Classification Problem Date Documented Da te Episodic/Chronic Disorders of lipid metabolism (3 sources) Hyperlipidemia; Translations: [Hyperlipidemia, unspecified] 04-17-2019 Chronic Fracture of upper limb (3 sources) Closed fracture of ulna; Translations: [Unspecified fracture of shaft of left ulna, initial encounter for closed fracture] 04-27-2015 Episodic Mood disorders (3 sources) Depressive disorder; Translations: [Depressive disorder] 04-17-2019 Chronic Other lower respiratory disease (3 sources) Dyspnea on exertion; Translations: [Shortness of breath] 04-17-2019 Episodic Other screening for suspected conditions (not mental disorders or infectious disease) (4 sources) Patient encounter status; Translations: [Encounter for screening for malignant neoplasm of colon] Onset: 08-10-2023 07-22-2023 Episodic Pancreatic disorders (not diabetes) (4 sources) Exocrine pancreatic insufficiency; Translations: [Exocrine pancreatic insufficiency] Onset: 04-10-2024 04-10-2024 Episodic Phlebitis; thrombophlebitis and thromboembolism (3 sources) Deep venous thrombosis; Translations: [Acute embolism and thrombosis of unspecified deep veins of unspecified lower extremity] 04-17-2019 Episodic Residual codes; unclassified (3 sources) Obstructive sleep apnea syndrome; Translations: [Obstructive sleep apnea (adult) (pediatric)] 04-17-2019 Chronic Residual codes; unclassified (3 sources) History of colonoscopy; Translations: [Other specified postprocedural states] 04-17-2019 Episodic Sprains and strains (3 sources) Strain of muscle at thorax level; Translations: [Strain of muscle and tendon of unspecified wall of thorax, initial encounter] 05-15-2017 Episodic Past or Other Problems Problem Classification Problem Date Documented Da te Episodic/Chronic Noninfectious gastroenteritis (8 sources) Chronic diarrhea of unknown origin ; Translations: [Diarrhea] Onset: 08-05-2023 08-10-2023 Episodic Results Test Name Value Interpretation Reference Range Facility SCRN MAMM (CAD)W/DILIAMau Youssef n 11-06-2024 SCRN MAMM (CAD)W/DILIAMau YUSUF [facility] Imaging Services [address], [place] [id number] SCRN MAMM (CAD)W/DILIA YUSUF MR#: [id number] Acct: [id number] Name: EZ PRO Rep #: [id number] : 1970 F 54 From: Cesar Brannon MD PCP: Dr. Janeth Ferreira MD Status: REG CLI Study: SCRN MAMM (CAD)W/DILIA BILAT Date of Exam: 10/10 Exam# [id number] Ordering Dr: [place] [id number] MAMMOGRAPHY - BILATERAL SCREENING 3-D TOMOSYNTHESIS REASON FOR EXAM: Female, 54 years old. SCREENING PERTINENT HISTORY: No significant family history. TECHNIQUE: 2-D mammograms and 3-D Tomosynthesis of the breast (s) were performed. CAD was performed. COMPARISON: 12/10/2022 FINDINGS: The breast composition is composed of scattered fibroglandular density. Scattered benign calcifications are seen. No dense spiculated masses or suspicious microcalcifications are identified. No architectural distortion is identified. There is no skin thickening or retraction. There has been no significant change since the prior study. BI/SCRN MAMM (CAD)W/DILIA BILAT IMPRESSION: No mammographic signs of malignancy. Routine yearly mammograms recommended. ASSESSMENT CATEGORY: BIRADS Category 1: Negative. A letter regarding these results will be sent to the patient by the facility within 30 days. FOLLOW UP RECOMMENDATION: Yearly follow up mammogram recommended. (A) Approximately 10% of breast cancers are not detected by mammography. A normal mammogram should not delay biopsy of a clinically suspicious abnormality. Electronically Signed: Cesar Brannon MD at 20:55 EST Reading Location ID and State: 4 [facility] Tel , Service support , CC: Dr. Janeth Ferreira MD Doctor Of Nursing Practice: Signed Normal [place] CBC W/Diff, Automatedon 12-0 Absolute Lymph 3.01 X10 3/uL Normal 0.83-4.51 [place] Comment on above: Performed By: #### L 501.9547, L500.1440, L503.6250, L506.0400, L100.0100 #### [facility] [place], [address] Absolute Neut 7.6 X10 3/uL Normal 2.0-7.7 [place] Comment on above: Performed By: #### L 501.9520, L500.4050, L503.6550, L506.0400, L100.0100 #### [facility] [address] [place], [address] Basophils/100 WBC (Bld) 0.7 % Normal 0-1 [place] Comment on above: Performed By: #### L 501.9520, L500.4050, L503.6550, L506.0400, L100.0100 #### [facility] [address] [place], [address] Eosinophils/100 WBC (Bld) 2.2 % Normal 0-5 [place] Comment on above: Performed By: #### L 501.9520, L500.4050, L503.6550, L506.0400, L100.0100 #### [facility] [address] [place], [address] Erythrocyte distribution width (RBC) [Ratio] 12.6 % Normal 11.6-14.6 [facility] Comment on above: Performed By: #### L 501.9520, L500.4050, L503.6550, L506.0400, L100.0100 #### [facility] [address] [place], [address] Hematocrit (Bld) [Volume fraction] 44.1 % Normal 37-47 [facility] Comment on above: Performed By: #### L 501.9520, L500.4050, L503.6550, L506.0400, L100.0100 #### [facility] [address] [place], [address] Hemoglobin (Bld) [Mass/Vol] 14.5 g/dL Normal 12.0-15.0 [facility] Comment on above: Performed By: #### L 501.9520, L500.4050, L503.6550, L506.0400, L100.0100 #### [facility] [address] [place], [address] IG% 0.400 Normal 0.0-0.9 [facility] Comment on above: Result Comment: IG% - Immature Granulocytes (promyelocytes, myelocytes and metamyelocytes) > 1% indicates that a LEFT SHIFT is Present. Performed By: #### L 501.9520, L500.4050, L503.6550, L506.0400, L100.0100 #### [facility] [address] [place], [address] Lymphocytes/100 WBC (Bld) 25.1 % Normal 19-41 [facility] Comment on above: Performed By: #### L 501.9520, L500.4050, L503.6550, L506.0400, L100.0100 #### [facility] [address] [place], [address] MCH (RBC) [Entitic mass] 31.1 pg Normal 27.0-32.0 [facility] Comment on above: Performed By: #### L 501.9520, L500.4050, L503.6550, L506.0400, L100.0100 #### [facility] [address] [place], [address] MCHC (RBC) [Mass/Vol] 32.9 g/dL Normal 32-36 [facility] Comment on above: Performed By: #### L 501.9520, L500.4050, L503.6550, L506.0400, L100.0100 #### [facility] [address] [place], [address] MCV (RBC) [Entitic vol] 94.6 fL Normal 81-99 [facility] Comment on above: Performed By: #### L 501.9520, L500.4050, L503.6550, L506.0400, L100.0100 #### [facility] [address] [place], [address] Monocytes/100 WBC (Bld) 7.9 % Normal 0-10 [facility] Comment on above: Performed By: #### L 501.9520, L500.4050, L503.6550, L506.0400, L100.0100 #### [facility] [address] [place], [address] Neutrophils/100 WBC (Bld) 63.7 % Normal 47-70 [place] Comment on above: Performed By: #### L 501.9520, L500.4050, L503.6550, L506.0400, L100.0100 #### [facility] [address] [place], [address] Nucleated RBC (Bld) [#/Vol] 0 10*3/uL Normal 0-5 [place] Comment on above: Performed By: #### L 501.9520, L500.4050, L503.6550, L506.0400, L100.0100 #### [facility] [address] [place], [address] Platelet mean volume (Bld) [Entitic vol] 8.3 fL Normal 6.2-12.0 [facility] Comment on above: Performed By: #### L 501.9520, L500.4050, L503.6550, L506.0400, L100.0100 #### [facility] [address] [place], [address] Platelets (Bld) [#/Vol] 306 10*3/uL Normal 150-450 [facility] Comment on above: Performed By: #### L 501.9520, L500.4050, L503.6550, L506.0400, L100.0100 #### [facility] [address] [place], [address] RBC (Bld) [#/Vol] 4.66 10*6/uL Normal 4.2-5.4 [facility] Comment on above: Performed By: #### L 501.9520, L500.4050, L503.6550, L506.0400, L100.0100 #### [facility] [address] [place], [address] RDW SD 44.0 fl High 35.1-43.9 [facility] Comment on above: Performed By: #### L 501.9520, L500.4050, L503.6550, L506.0400, L100.0100 #### [facility] [address] [place], [address] WBC (Bld) [#/Vol] 12.0 10*3/uL High 4.4-11.0 [facility] Comment on above: Performed By: #### L 501.9520, L500.4050, L503.6550, L506.0400, L100.0100 #### [facility] [address] [place], [address] Comprehensive Metabolic Prof [facility] 10-13-2024 Albumin [Mass/Vol] 3.7 g/dL Normal 3.2-5.0 [facility] Comment on above: Performed By: #### L 501.9520, L500.4050, L503.6550, L506.0400, L100.0100 #### [facility] [address] [place], [address] Albumin/Globulin [Mass ratio] 1.0 {ratio} Normal 0.9-2.4 [facility] Comment on above: Performed By: #### L 501.9520, L500.4050, L503.6550, L506.0400, L100.0100 #### [facility] [address] [place], [address] ALK P 102 U/L Normal 45-117 [facility] Comment on above: Performed By: #### L 501.9520, L500.4050, L503.6550, L506.0400, L100.0100 #### [facility] [address] [place], [address] ALT [Catalytic activity/Vol] 38 U/L Normal 13-56 [facility] Comment on above: Performed By: #### L 501.9520, L500.4050, L503.6550, L506.0400, L100.0100 #### [facility] [address] [place], [address] AST [Catalytic activity/Vol] 26 U/L Normal 15-37 [facility] Comment on above: Performed By: #### L 501.9520, L500.4050, L503.6550, L506.0400, L100.0100 #### [facility] [address] [place], [address] Bilirubin [Mass/Vol] 1.00 mg/dL Normal 0.20-1.00 [facility] Comment on above: Result Comment: For patients on eltrombopag therapy, use of Dimension [place] TBIL is not recommended. Performed By: #### L 501.9520, L500.4050, L503.6550, L506.0400, L100.0100 #### [facility] [address] [place], [address] BUN/CRE 20.4 RATIO High 10-20 [facility] Comment on above: Performed By: #### L 501.9520, L500.4050, L503.6550, L506.0400, L100.0100 #### [facility] [address] [place], [address] CA,Total 9.0 mg/dL Normal 8.5-10.1 [facility] Comment on above: Performed By: #### L 501.9520, L500.4050, L503.6550, L506.0400, L100.0100 #### [facility] [address] [place], [address] Chloride [Moles/Vol] 106 mmol/L Normal 98-107 [facility] Comment on above: Performed By: #### L 501.9520, L500.4050, L503.6550, L506.0400, L100.0100 #### [facility] [address] [place], [address] CO2 [Moles/Vol] 30.0 mmol/L Normal 21.0-32.0 [facility] Comment on above: Performed By: #### L 501.9520, L500.4050, L503.6550, L506.0400, L100.0100 #### [facility] [address] [place], [address] Creatinine [Mass/Vol] 0.84 mg/dL Normal 0.55-1.02 [facility] Comment on above: Result Comment: The validity of the calculated GFR GFRAA in patients over 70 years has not been determined. Clinical correlation is essential. Performed By: #### L 501.9520, L500.4050, L503.6550, L506.0400, L100.0100 #### [facility] [address] [place], [address] EST GFR - AA 92 mL/min Normal >60 [facility] Comment on above: Result Comment: Afri can Guyanese GFR Calc Performed By: #### L 501.9520, L500.4050, L503.6550, L506.0400, L100.0100 #### [facility] [address] [place], [address] GAP 4 Low 5-15 [facility] Comment on above: Performed By: #### L 501.9520, L500.4050, L503.6550, L506.0400, L100.0100 #### [facility] [address] [place], [address] GFR/1.73 sq M.predicted among non-blacks MDRD (S/P/Bld) [Vol rate/Area] 76 mL/min/{1.73_m2} Normal >60 [facility] Comment on above: Result Comment: Non- GFR Calc Performed By: #### L 501.9520, L500.4050, L503.6550, L506.0400, L100.0100 #### [facility] [address] [place], [address] Globulin (S) [Mass/Vol] 3.8 g/dL Normal 2.2-4.2 [facility] Comment on above: Performed By: #### L 501.9520, L500.4050, L503.6550, L506.0400, L100.0100 #### [facility] [address] [place], [address] Glucose [Mass/Vol] 85 mg/dL Normal 74-106 [facility] Comment on above: Performed By: #### L 501.9520, L500.4050, L503.6550, L506.0400, L100.0100 #### [facility] [address] [place], [address] Potassium [Moles/Vol] 3.6 mmol/L Normal 3.5-5.1 [facility] Comment on above: Performed By: #### L 501.9520, L500.4050, L503.6550, L506.0400, L100.0100 #### [facility] [address] [place], [address] Sodium [Moles/Vol] 140 mmol/L Normal 136-145 [facility] Comment on above: Performed By: #### L 501.9520, L500.4050, L503.6550, L506.0400, L100.0100 #### [facility] [address] [place], [address] T PROT 7.5 g/dL Normal 6.4-8.2 [facility] Comment on above: Performed By: #### L 501.9520, L500.4050, L503.6550, L506.0400, L100.0100 #### [facility] [address] [place], [address] Urea nitrogen [Mass/Vol] 17 mg/dL Normal 7-18 [facility] Comment on above: Performed By: #### L 501.9520, L500.4050, L503.6550, L506.0400, L100.0100 #### [facility] [address] [place], [address] Ferritinon 10-13-2024 Ferritin [Mass/Vol] 65 ng/mL Normal 8-252 [facility] Comment on above: Performed By: #### L 501.9520, L500.4050, L503.6550, L506.0400, L100.0100 #### [facility] [address] [place], [address] T4 Free Directon 10-13-2024 T4 FREE DIRECT 0.81 ng/dL Normal 0.76-1.46 [facility] Comment on above: Performed By: #### L 501.9520, L500.4050, L503.6550, L506.0400, L100.0100 #### [facility] [address] [place], [address] Thyroid Stim Hormone (TSH)on 10-13-2024 TSH 1.280 uIU/mL Normal 0.358-3.740 [facility] Comment on above: Performed By: #### L 501.9520, L500.4050, L503.6550, L506.0400, L100.0100 #### [facility] [place], [address] COLONOSCOPYon 08-11-2023 Colonoscopy Table formatting fro m the original result was not included. [facility] Surgical pathology studyon 1 Surgical pathology study Pathology report.total SEE COMMENT Surgical Pathology Case: [id number] Authorizing Provider: Vinayak Vargas DO Collected: 08/10/2023 1517 Ordering Location: [facility] Received: 08/11/2023 2348 [facility] Pathologist: Chinyere Chan Specimen: COLON - RANDOM BIOPSY, random colon biospy Path report.final diagnosis SEE COMMENT A. Colon, random, biopsy: Colonic mucosa with no specific abnormality. Laboratory comment By the signature on this report, the individual or group listed as making the Final Interpretation/Diagnosi s certifies that they have reviewed this case. Path report.gross observation SEE COMMENT A: Received in formalin, labeled with the patient's name and hospital number and R, are multiple fragments of jasso, soft tissue aggregating to 2.1 x 0.2 x 0.1 cm. The specimen is submitted in toto in one cassette. [facility] No Panel InformationOrdered By: Vinayak Vargas on 07-24-2023 Stool Pancreatic Elastase 130 >200 [facility] Comment on above: Result Units: ug Clarisa st./g Severe Pancreatic Insufficiency: <100 Moderate Pancreatic Insufficiency: 100 - 200 Normal: >200Performed at: [facility] [address] [id number] Director: Cr Moore MD, Phone: [phone] Absolute lymphocyte countOrd ered By: Vinayak Vargas on 07-22-2023 Lymphocytes Auto (Unsp spec) [#/Vol] 2.81 10*3/uL 0.83-4.51 [facility] Basophil percentageOrdered B y: Vinayak Vargas on 07-22-2023 Basophils/100 WBC (Bld) 0.4 % 0-1 [place] Bilirubin [Mass/Vol] 0.30 mg/dL 0.20-1.00 [facility] Comment on above: For patients on eltr ombopag therapy, use of Dimension [place] TBIL is not recommended. Chloride [Moles/Vol] 111 mmol/L 98-107 [facility] Eosinophils/100 WBC (Bld) 2.9 % 0-5 [place] Glucose [Mass/Vol] 88 mg/dL 74-106 [facility] Neutrophils (Bld) [#/Vol] 3.9 10*3/uL 2.0-7.7 [facility] Neutrophils/100 WBC (Bld) 50.7 % 47-70 [facility] Potassium [Moles/Vol] 3.5 mmol/L 3.5-5.1 [facility] Protein [Mass/Vol] 7.6 g/dL 6.4-8.2 [facility] Sodium [Moles/Vol] 140 mmol/L 136-145 [facility] WBC (Bld) [#/Vol] 7.6 10*3/uL 4.4-11.0 [facility] Blood erythrocytes count (nu mber/volume)Ordered By: Vinayak Vargas on 07-22-2023 RBC (Bld) [#/Vol] 4.33 10*6/uL 4.2-5.4 [facility] Blood hemoglobin measurement (mass/volume)Ordered By: Vinayak Vargas on 07-22-2023 Hemoglobin (Bld) [Mass/Vol] 13.7 g/dL 12.0-15.0 [facility] Blood lymphocytes/100 leukoc ytesOrdered By: Vinayak Vargas on 07-22-2023 Lymphocytes/100 WBC (Bld) 37.0 % 19-41 [facility] Blood monocytes/100 leukocyt esOrdered By: Vinayak Vargas on 07-22-2023 Monocytes/100 WBC (Bld) 8.7 % 0-10 [facility] Blood platelet mean volumeOr dered By: Vinayak Vargas on 07-22-2023 Platelet mean volume (Bld) [Entitic vol] 9.2 fL 6.2-12.0 [place] Determination of erythrocyte mean corpuscular volume (MCV)Ordered By: Vinayak Vargas on 07-22-2023 MCV (RBC) [Entitic vol] 96.1 fL 81-99 [facility] Hematocrit Auto (Bld) [Volum e fraction]Ordered By: Vinayak Vargas on 07-22-2023 Hematocrit (Bld) [Volume fraction] 41.6 % 37-47 [facility] - Chemistry and C hemistry - challengeOrdered By: Vinayak Vargas on 07-22-2023 ALP [Catalytic activity/Vol] 91 U/L 45-117 [facility] ALT [Catalytic activity/Vol] 30 U/L 13-56 [facility] CO2 [Moles/Vol] 26.0 mmol/L 21.0-32.0 [facility] Globulin (S) [Mass/Vol] 4.1 g/dL 2.2-4.2 [facility] Urea nitrogen/Creatinine [Mass ratio] 18.3 mg/mg 10-20 [facility] - Hematology and Cell countsOrdered By: Vinayak Vargas on 07-22-2023 Erythrocyte distribution width (RBC) [Entitic vol] 43.2 fL 35.1-43.9 [facility] Erythrocyte distribution width (RBC) [Ratio] 12.2 % 11.6-14.6 [facility] Immature granulocytes/100 WBC (Bld) 0.300 % 0.0-0.9 [facility] Comment on above: IG% - Immature Granu locytes (promyelocytes, myelocytes and metamyelocytes) > 1% indicates that a LEFT SHIFT is Present. MCH (RBC) [Entitic mass] 31.6 pg 27.0-32.0 [facility] Nucleated RBC/100 WBC (Bld) [Ratio] 0 % 0-5 [facility] MCHC Auto (RBC) [Mass/Vol]Or dered By: Vinayak Vargas on 07-22-2023 MCHC (RBC) [Mass/Vol] 32.9 g/dL 32-36 [facility] No Panel InformationOrdered By: Vinayak Vargas on 07-22-2023 Endomysial IgA Antibody Negative Negative [facility] Estimated GFR (MDRD) Amer 111 mL/min >60 [facility] Comment on above: GFR Calc Estimated GFR (MDRD) Non-Af Amer 92 mL/min >60 [facility] Comment on above: Non- GFR Calc Platelets bldOrdered By: Len Vargas on 07-22-2023 Platelets (Bld) [#/Vol] 323 10*3/uL 150-450 [facility] Serum IgA measurement (units /volume)Ordered By: Vinayak Vargas on 07-22-2023 IgA Qn (S) 700 mg/dL 87-352 [place] Comment on above: Performed at: [facility] [id number] Director: Robbi Blanco PhD, Phone: [phone] Serum or plasma albumin shefali urement (mass/volume)Ordered By: Vinayak Vargas on 07-22-2023 Albumin [Mass/Vol] 3.5 g/dL 3.2-5.0 [facility] Serum or plasma albumin/glob ulin mass ratioOrdered By: Vinayak Vargas on 07-22-2023 Albumin/Globulin [Mass ratio] 0.9 {ratio} 0.9-2.4 [place] Serum or plasma calcium shefali urement (mass/volume)Ordered By: Vinayak Vargas on 07-22-2023 Calcium [Mass/Vol] 8.5 mg/dL 8.5-10.1 [facility] Serum or plasma creatinine m easurement (mass/volume)Ordered By: Vinayak Vargas on 07-22-2023 Creatinine [Mass/Vol] 0.71 mg/dL 0.55-1.02 [facility] Comment on above: The validity of the calculated GFR & GFRAA in patients over 70 years has not been determined. Clinical correlation is essential. Serum or plasma urea nitroge n measurement (mass/volume)Ordered By: Vinayak Vargas on 07-22-2023 Urea nitrogen [Mass/Vol] 13 mg/dL 7-18 [place] Serum tissue transglutaminas e IgA antibody assay (units/volume)Ordered By: Vinayak Vargas on 07-22-2023 tTG IgA Qn (S) <2 U/mL 0-3 [place] Comment on above: Negative 0 - 3 Weak Positive 4 - 10 Positive >10 Tissue Transglutaminase (tTG) has been identified as the endomysial antigen. Studies have demonstr- ated that endomysial IgA antibodies have over 99% specificity for gluten sensitive enteropathy. Thin prep Papanicolaou smear with manual screeningOrdered By: Vinayak Vargas on 07-22-2023 Thin prep Papanicolaou smear with manual screening 28 U/L 15-37 [place] Thin prep Papanicolaou smear with manual screening 3 5-15 [place] Initial Visit (Gastroenterol ogy)on 07-15-2023 Initial Visit (Gastroenterology) Diagnoses/Problems Assessed Chronic diarrhea of unknown origin (787.91) (K52.9) Orders Chronic diarrhea of unknown origin CELIAC DISEASE SEROLOGY PANEL; Status:Active; Requested for:15Jul2023; Perform:Lab Services - Lab To Draw (Blood Test); Due:13Oct2023;Ordered; For:Chronic diarrhea of unknown origin; Ordered By:Vinayak Vargas; Colonoscopy Diagnostic; Status:Hold For - Scheduling; Requested for:15Jul2023; Perform:[facility]; Due:[id number];Ordered; For:Chronic diarrhea of unknown origin; Ordered By:Vinayak Vargas; Patient competent to provide consent? : Yes-pt mentally competent to provide consent Complete Blood Count + Differential; Status:Active; Requested for:15Jul2023; Perform:Lab Services - Lab To Draw (Blood Test); Due:[id number];Ordered; For:Chronic diarrhea of unknown origin; Ordered By:Vinayak Vargas; Comprehensive Metabolic Panel; Status:Active; Requested for:15Jul2023; Perform:Lab Services - Lab To Draw (Blood Test); Due:[id number];Ordered; For:Chronic diarrhea of unknown origin; Ordered By:Vinayak Vargas; Pancreatic Elastase, Stool; Status:Active; Requested for:15Jul2023; Perform:Lab Services - Lab To Draw (Non-Blood Test); Due:[id number];Ordered; For:Chronic diarrhea of unknown origin; Ordered By:Vinayak Vargas; SocHx: Former smoker Tobacco Use Screening; Status:Complete; Done: 15Jul2023 Perform:Not Applicable;Ordered; For:SocHx: Former smoker; Ordered By:Jessica Jacob; Provider Impressions Proceed with colonoscopy and lab testing. Advised her to keep food journal and will follow-up after above. We discussed beginning Xifaxan for diarrhea predominant IBS but unfortunately has no insurance at this time and we have no samples. Chief Complaint NPV in office today for chronic diarrhea x several years, lower abdominal pain, bloating. Hx of colonoscopy in [place] approx 10.5 years ago. Mother had similar issues growing up but pt doesn?t know if she had been diagnosed with anything. History of Present [id number] female self-referred for chronic diarrhea states diarrhea began when she was adolescent years 6 grade. Is averaging 4-6 bowel movements daily with urgency and several episodes of incontinence weekly. She denies any rectal bleeding is identified raw vegetables and high roughage food is a trigger for diarrhea. She denies any issues with lactose, gluten or fructose. Family history positive for diarrhea in her mother no family history of colorectal cancer or inflammatory bowel disease. She states she underwent celiac testing 10 years ago at which point she had a colonoscopy and states at that time all testing was unremarkable. She denies any abdominal bloating does feel that her stools are loose and float on top of the water she denies any gallbladder issues and states that if she eats fatty or fried foods her symptoms are no worse and no better. She admits to having no major surgeries did have open fixation of elbow fracture several years ago and 1 child naturally. She does not smoke but drinks 1 alcoholic beverage weekly. She is unmarried. Father of complications from stroke, mother still living. Review of Systems Constitutional: no fever, no chills, not feeling tired and no recent weight loss. ENT: no lymphadenopathy. Cardiovascular: no shortness of breath and no chest pain. Respiratory: no cough. Gastrointestinal: as noted in HPI. Musculoskeletal: no joint swelling. Integumentary: no rashes, no skin lesions and was no jaundiced. All other systems have been reviewed and are negative for complaint. Surgical History Problems History of Arm surgery History of Colonoscopy Family History Father Family history of cerebrovascular accident (CVA) (V17.1) (Z82.3) Family history of diabetes mellitus (V18.0) (Z83.3) Family history of hypertension (V17.49) (Z82.49) Paternal Grandmother Family history of malignant neoplasm of bone (V16.8) (Z80.8) Social History Problems Does not have living will Former smoker (V15.82) (Z87.891) No illicit drug use Occasional alcohol use Occasional caffeine consumption Allergies Medication No Known Drug Allergies Recorded By: Jessica Jacob; 07/15/2023 10:49:42 AM Current Meds Medication NameInstruction busPIRone HCl - 5 MG Oral TabletTAKE 1 TABLET BY MOUTH TWICE DAILY Escitalopram Oxalate 20 MG Oral TabletTAKE 1 TABLET BY MOUTH DAILY Warfarin Sodium 1 MG Oral Tablettake 1 (ONE) tablet orally daily as directed with 5 (FIVE) mg tab daily] Warfarin Sodium 5 MG Oral TabletTAKE 1 TABLET BY MOUTH DAILY DIRECTED Vitals Vital Signs Recorded: 15Jul2023 10:49AM Height5 ft 2 in Lelocb227 lb 3.2 oz BMI Imfetmidol41.03 kg/m2 BSA Calculated1.76 Physical Exam Constitutional General appearance: In no acute distress . Eyes Anicteric Sclerae . Ears, Nose, Mouth, and Throat Oropharynx without lesions. Neck Supple, no lymphadenopathy. Pulmonary Auscultation of lungs: Clear. Cardiovascular (more content not included)... Normal Touchworks Absolute lymphocyte countOrd ered By: Dr. Ferreira on 12-04-2022 Lymphocytes Auto (Unsp spec) [#/Vol] 2.69 10*3/uL 0.83-4.51 [place] Basophil percentageOrdered B y: Dr. Ferreira on 12-04-2022 Basophils/100 WBC (Bld) 0.5 % 0-1 [place] Bilirubin [Mass/Vol] 0.60 mg/dL 0.20-1.00 [facility] Comment on above: For patients on eltr ombopag therapy, use of Dimension [place] TBIL is not recommended. Chloride [Moles/Vol] 108 mmol/L 98-107 [facility] Cholesterol [Mass/Vol] 151 mg/dL <200 [facility] Comment on above: <200 mg/dL Desirable 200-240 mg/dL Borderline >240 mg/dL High Risk Eosinophils/100 WBC (Bld) 3.3 % 0-5 [place] Glucose [Mass/Vol] 90 mg/dL 74-106 [facility] Neutrophils (Bld) [#/Vol] 4.7 10*3/uL 2.0-7.7 [place] Neutrophils/100 WBC (Bld) 54.2 % 47-70 [place] Potassium [Moles/Vol] 4.0 mmol/L 3.5-5.1 [facility] Protein [Mass/Vol] 7.5 g/dL 6.4-8.2 [facility] Sodium [Moles/Vol] 142 mmol/L 136-145 [facility] Triglyceride [Mass/Vol] 50 mg/dL <199 [place] Comment on above: The drugs N-Acetylcy steine and Metamizole may falsely depress this assay.Serum Triglycerides Reference Interval Normal <150 mg/dL Borderline high 150 - 199 mg/dL High 200 - 499 mg/dL Very High > or = 500 mg/dL WBC (Bld) [#/Vol] 8.6 10*3/uL 4.4-11.0 [facility] Blood erythrocytes count (nu mber/volume)Ordered By: Dr. Ferreira on 12-04-2022 RBC (Bld) [#/Vol] 4.56 10*6/uL 4.2-5.4 [facility] Blood hemoglobin measurement (mass/volume)Ordered By: Dr. Ferreira on 12-04-2022 Hemoglobin (Bld) [Mass/Vol] 14.4 g/dL 12.0-15.0 [place] Blood lymphocytes/100 leukoc ytesOrdered By: Dr. Ferreira on 12-04-2022 Lymphocytes/100 WBC (Bld) 31.4 % 19-41 [place] Blood monocytes/100 leukocyt esOrdered By: Dr. Ferreira on 12-04-2022 Monocytes/100 WBC (Bld) 10.2 % 0-10 [place] Blood platelet mean volumeOr dered By: Dr. Ferreira on 12-04-2022 Platelet mean volume (Bld) [Entitic vol] 8.7 fL 6.2-12.0 [place] Determination of erythrocyte mean corpuscular volume (MCV)Ordered By: Dr. Ferreira on 12-04-2022 MCV (RBC) [Entitic vol] 96.7 fL 81-99 [place] Hematocrit Auto (Bld) [Volum e fraction]Ordered By: Dr. Ferreira on 12-04-2022 Hematocrit (Bld) [Volume fraction] 44.1 % 37-47 [place] [facility] - Chemistry and C hemistry - challengeOrdered By: Dr. Ferreira on 12-04-2022 ALP [Catalytic activity/Vol] 93 U/L 45-117 [place] ALT [Catalytic activity/Vol] 27 U/L 13-56 [place] CO2 [Moles/Vol] 26.0 mmol/L 21.0-32.0 [place] Globulin (S) [Mass/Vol] 4.1 g/dL 2.2-4.2 [place] Urea nitrogen/Creatinine [Mass ratio] 14.6 mg/mg 10-20 [place] [facility] - Hematology and Cell countsOrdered By: Dr. Ferreira on 12-04-2022 Erythrocyte distribution width (RBC) [Entitic vol] 44.7 fL 35.1-43.9 [place] Erythrocyte distribution width (RBC) [Ratio] 12.5 % 11.6-14.6 [place] Immature granulocytes/100 WBC (Bld) 0.400 % 0.0-0.9 [place] Comment on above: IG% - Immature Granu locytes (promyelocytes, myelocytes and metamyelocytes) > 1% indicates that a LEFT SHIFT is Present. MCH (RBC) [Entitic mass] 31.6 pg 27.0-32.0 [place] Nucleated RBC/100 WBC (Bld) [Ratio] 0 % 0-5 [place] MCHC Auto (RBC) [Mass/Vol]Or dered By: Dr. Ferreira on 12-04-2022 MCHC (RBC) [Mass/Vol] 32.7 g/dL 32-36 [facility] No Panel InformationOrdered By: Dr. Ferreira on 12-04-2022 Estimated GFR (MDRD) Amer 104 mL/min >60 [place] Comment on above: GFR Calc Estimated GFR (MDRD) Non-Af Amer 86 mL/min >60 [place] Comment on above: Non- GFR Calc Platelets bldOrdered By: Dr. Ferreira on 12-04-2022 Platelets (Bld) [#/Vol] 399 10*3/uL 150-450 [place] Serum or plasma albumin shefali urement (mass/volume)Ordered By: Dr. Ferreira on 12-04-2022 Albumin [Mass/Vol] 3.4 g/dL 3.2-5.0 [facility] Serum or plasma albumin/glob ulin mass ratioOrdered By: Dr. Ferreira on 12-04-2022 Albumin/Globulin [Mass ratio] 0.8 {ratio} 0.9-2.4 [place] Serum or plasma calcium shefali urement (mass/volume)Ordered By: Dr. Ferreira on 12-04-2022 Calcium [Mass/Vol] 8.6 mg/dL 8.5-10.1 [facility] Serum or plasma cholesterol in HDL measurement (mass/volume)Ordered By: Dr. Ferreira on 12-04-2022 Cholesterol in HDL [Mass/Vol] 75 mg/dL >40 [place] Comment on above: The drugs N-Acetylcy steine and Metamizole may falsely depress this assay. Reference Range HDL <40 mg/dL Low HDL Cholesterol HDL >or= 60 mg/dL High HDL Cholesterol Serum or plasma cholesterol in VLDL measurement (mass/volume)Ordered By: Dr. Ferreira on 12-04-2022 Cholesterol in VLDL [Mass/Vol] 10 mg/dL 5-40 [place] Serum or plasma creatinine m easurement (mass/volume)Ordered By: Dr. Ferreira on 12-04-2022 Creatinine [Mass/Vol] 0.75 mg/dL 0.55-1.02 [facility] Comment on above: The validity of the calculated GFR & GFRAA in patients over 70 years has not been determined. Clinical correlation is essential. Serum or plasma low density lipoprotein (LDL) cholesterol measurement (mass/volume)Ordered By: Dr. Ferreira on 12-04-2022 Cholesterol in LDL [Mass/Vol] 66 mg/dL 0-130 [place] Serum or plasma urea nitroge n measurement (mass/volume)Ordered By: Dr. Ferreira on 12-04-2022 Urea nitrogen [Mass/Vol] 11 mg/dL 7-18 [place] Thin prep Papanicolaou smear with manual screeningOrdered By: Dr. Ferreira on 12-04-2022 Thin prep Papanicolaou smear with manual screening 25 U/L 15-37 [place] Thin prep Papanicolaou smear with manual screening 8 5-15 [place] Vital Signs Date Time Vital Sign Value Performing Clinician Facility 04-10-2024 16:22-0400 Body height 157.5 cm Vinayak Thomae DO Work Phone: [facility] 04-10-2024 16:22-0400 Body mass index (BMI) [Ratio] 29.3 kg/m2 Vinayak Thomae DO Work Phone: [facility] 04-10-2024 16:22-0400 Body weight 72.67 kg Vinayak Thomae DO Work Phone: [facility] 08-10-2023 16:07-0400 Diastolic blood pressure 76 mm[Hg] Vinayak Thomae DO Work Phone: [facility] 08-10-2023 16:07-0400 Heart rate 59 /min Vinayak Thomae DO Work Phone: [facility] 08-10-2023 16:07-0400 Respiratory rate 18 /min Vinayak Thomae DO Work Phone: [facility] 08-10-2023 16:07-0400 SaO2% (BldA) [Mass fraction] 100 % Vinayak Thomae DO Work Phone: [facility] 08-10-2023 16:07-0400 Systolic blood pressure 116 mm[Hg] Vinayak Thomae DO Work Phone: [facility] 08-10-2023 15:22-0400 Body temperature 97.11 [degF] Vinayak Thomae DO Work Phone: [facility] 08-10-2023 13:43-0400 Body height 157.5 cm Vinayak Thomae DO Work Phone: [facility] 08-10-2023 13:43-0400 Body mass index (BMI) [Ratio] 29.15 kg/m2 Vinayak Thomae DO Work Phone: [facility] 08-10-2023 13:43-0400 Body weight 72.3 kg Vinayak Vargas DO Work Phone: [facility] 07-15-2023 10:49-0400 Body height 157.48 cm No PCP None -[facility] Work Phone: 07-15-2023 10:49-0400 Body mass index (BMI) [Ratio] 30.03 kg/m2 No PCP None -[facility] [facility] Work Phone: 07-15-2023 10:49-0400 Body surface area Derived from formula 1.76 m2 No PCP None [facility] [facility] Work Phone: 07-15-2023 10:49-0400 Body weight 74.48 kg No PCP None -[facility] [facility] Work Phone: Encounters Encounter Date Encounter Type Care Provider Facility Start: 11-14-2024 Encounter for genera l adult medical examination without abnormal findings [facility] Start: 11-06-2024 End: 11-06-2024 ambulatory [facility] Facility:[place] Start: 10-13-2024 End: 10-13-2024 ambulatory [facility] Facility:[place] Start: 04-10-2024 End: 04-10-2024 Office outpatient visit 15 minutes Vinayak Pintojess DO Work Phone: [facility] Comment on above: Exocrine pancreatic insufficiency ([facility]) (Primary Dx) Start: 04-10-2024 End: 04-10-2024 ambulatory [facility] Start: 10-21-2023 End: 10-21-2023 ambulatory [place] Work Phone: Start: 10-21-2023 End: 10-21-2023 Patient encounter procedure [facility]Laboratory, Specimen Work Phone: Start: 08-10-2023 End: 08-11-2023 ambulatory [facility] Start: 08-10-2023 Subsequent hospital visit by physician Vinayak Vargas DO Work Phone: [facility] Comment on above: Encounter for screen ing for malignant neoplasm of colon (Primary Dx); Noninfective gastroenteritis and colitis, unspecified Start: 08-04-2023 AUDIT No PCP None [facility] [facility] Work Phone: Start: 07-24-2023 End: 07-24-2023 Patient encounter procedure [facility], Specimen Work Phone: Start: 07-22-2023 End: 07-22-2023 ambulatory [place] Work Phone: Start: 07-22-2023 End: 07-22-2023 Patient encounter procedure [facility] Work Phone: Start: 07-15-2023 Office outpatient ne w 45 minutes No PCP None [facility] Work Phone: Start: 07-15-2023 ambulatory Pt States None PCP Faci lity:[id number] Start: 12-10-2022 End: 12-10-2022 ambulatory [place] Work Phone: Start: 12-10-2022 End: 12-10-2022 Patient encounter procedure [facility]Out[facility] Breast [facility] Start: 12-04-2022 End: 12-04-2022 Patient encounter procedure [facility] Procedures Date Procedure Procedure Detail Performing Clinician Start: 08-10-2023 DISCHARGE PATIENT VINAYAK VARGAS Start: 08-10-2023 SURGICAL PATHOLOGY EXAM VINAYAK VARGAS Start: 08-10-2023 NOTIFY PROVIDER (PRO MPT FOR PARAMETERS) VINAYAK VARGAS Start: 08-10-2023 NPO DIET VINAYAK Villa Start: 08-10-2023 PULSE OXIMETRY, CONTINUOUS VINAYAK VARGAS Start: 08-10-2023 Glucose [Mass/volume ] in Serum or Plasma VINAYAK VARGAS Start: 08-10-2023 INSERT PERIPHERAL IV RADHA CASILLAS Start: 08-10-2023 MODERATE SEDATION VINAYAK VARGAS Start: 08-10-2023 NURSING COMMUNICATION Guillermina VARGAS Start: 08-10-2023 PLACE IN OUTPATIENT/HOSPITAL AMBULATORY SURGERY VINAYAK BLAIRJESS Start: 08-10-2023 POCT , URINE Guillermina VIKTOR SARAH Start: 08-10-2023 PULSE OXIMETRY, SPOT DA LUAN PINTOJESS Start: 08-10-2023 VITAL SIGNS VINAYAK Villa Start: 08-10-2023 Colonoscopy VINAYAK Villa Start: 12-10-2022 Screening mammography Colonoscopy No PCP None H/O: surgery History of surge ry on arm H/O: tubal ligation H/O tubal ligation Surgical repair of u pper extremity No PCP None Plan of Treatment Date Care Activity Detail Author Start: 09-27-2027 DTaP/Tdap/Td Vaccines (2 - Td or Tdap) DTaP/Tdap/Td Vaccines (2 - Td or Tdap) [facility] Start: 08-09-2026 Screening for malignant neoplasm of colon [facility] Start: 07-09-2024 Influenza vaccination Influenza Vaccine (Season Ended) [facility] Start: 10-21-2023 [place] Start: 10-14-2023 End: 10-14-2023 Patient encounter procedure 10/14/2023 3:15 PM EST Office Visit [facility] [address] [id number] Vinayak Vargas DO [address] [facility], [place] [address] [facility] Start: 08-10-2023 COLON, Provider: Vinayak Vargas, Status: Pen, Time: 1:00 PM COLON, Provider: Vinayak Vargas, Status: Pen, Time: 1:00 PM [facility] [address] Work Phone: Start: 07-24-2023 Elastase, pancreatic (el-1), fecal; quantitative [place] Start: 07-09-2023 COVID-19 Vaccine ( season) COVID-19 Vaccine ( season) [facility] Start: 07-09-2023 Influenza vaccination Influenza Vaccine (#1) [facility] Start: 07-29-2021 COVID-19 Vaccine (3 - Pfizer series) COVID-19 Vaccine (3 - Pfizer series) [facility] Start: 2011 Screening for malignant neoplasm of breast Mammogram [facility] Start: 1992 Screening for malignant neoplasm of cervix [facility] Start: 1990 Hepatitis B Vaccines (1 of 3 - 19+ 3-dose series) Hepatitis B Vaccines (1 of 3 - 19+ 3-dose series) [facility] Start: 1989 Diabetes mellitus screening Diabetes Screening [facility] Start: 1989 Hepatitis C screening Hepatitis C Screening [facility] Start: 1972 MMR Vaccines (1 of 1 - Standard series) MMR Vaccines (1 of 1 - Standard series) [facility] Start: 1971 Hepatitis B Vaccines (1 of 3 - 3-dose series) Hepatitis B Vaccines (1 of 3 - 3-dose series) [facility] Start: 1971 HIV screening HIV Screening [facility] Start: 1971 Lipid panel Lipid Panel [facility] Start: 1971 Screening for malignant neoplasm of colon [facility] Start: 1971 Yearly Adult Physical Yearly Adult Physical [facility] End: 08-10-2023 Choriogonadotropin ( test) [Presence] in Urine POCT , urine manually resulted Point of Care Testing Routine Once (Lab) for 1 Occurrences starting 08/10/2023 until 08/10/2023 [facility] Work Phone: Comment on above: Once (Lab) for 1 Occurrences starting until 08/10/2023 End: 08-10-2023 [facility] Work Phone: Comment on above: Once for 1 Occurrences starting 08/10/20 until 08/10/2023 End: 08-10-2023 Glucose [Mass/volume] in Serum or Plasma [facility] Work Phone: Comment on above: Once for 1 Occurrences starting 08/10/20 until 08/10/2023 Once (Lab) for 1 Occ urrences starting 08/10/2023 until 08/10/2023 End: 08-10-2023 Moderate Sedation Moderate Sedation Procedures Routine Once for 1 Occurrences starting 08/10/2023 until 08/10/2023 [facility] Work Phone: Comment on above: Once for 1 Occurrences starting 08/10/20 until 08/10/2023 Path report.final Dx Spec [facility] End: 08-10-2023 Pulse oximetry, continuous Pulse oximetry, continuous Respiratory Care Routine Continuous until discontinued starting 08/10/2023 [facility] Work Phone: Comment on above: Continuous until discontinued starting 1 End: 08-10-2023 Pulse oximetry, spot Pulse oximetry, spot Respiratory Care Routine Once for 1 Occurrences starting 08/10/2023 until 08/10/2023 [facility] Work Phone: Comment on above: Once for 1 Occurrences starting 08/10/20 until 08/10/2023 Surgical pathology study Surgica l Pathology Exam Pathology and Cytology Timed Encounter for screening for malignant neoplasm of colon Noninfective gastroenteritis and colitis, unspecified Release Upon Ordering for 1 Occurrences starting 08/10/2023 [facility] Work Phone: Comment on above: Release Upon Ordering for 1 Occurrences starting 08/10/2023 [facility] Immunizations Immunization Date Immunization Notes Care Provider Mechelle monreal 11-30-2022 zoster vaccine recombinant Vinayak Thomae DO Work Phone: [facility] Work Phone: 10-29-2021 zoster vaccine recombinant Vinayak Thomae DO Work Phone: [facility] Work Phone: 09-27-2017 tetanus toxoid, redu juan diphtheria toxoid, and acellular pertussis vaccine, adsorbed Vinayak Thomae DO Work Phone: [facility] Work Phone: Payers Date Payer Category Payer Self-pay [id number] 2023 Unknown 2023 Unknown [id number] 2016 Unknown [id number] 1971 Unknown [id number] [id number] 1971 Unknown [id number] [id number] 1971 Unknown [id number] [id number] Medicaid [id number] Unknown [id number] 2.16.8 [id number] Unknown [id number] [id number] Social History Date Type Detail Facility Start: 04-10-2019 End: 04-10-2019 Tobacco smoking status ALIS Unknown if ever smoked [place] Start: 1970 Sex Assigned At Female [facility] Start: 08-10-2023 Does not have living will Does not have living will -[facility] [facility] Work Phone: Start: 08-10-2023 Tobacco smoking stat us ALIS Ex-smoker [facility] End: 11-08-1990 History of tobacco use Current smoker [facility] Work Phone: End: 11-08-1990 History of tobacco use Cigarette Smoker [facility] Work Phone: Start: 08-10-2023 Tobacco use and exposure Smokeless tobacco non-user [facility] Work Phone: Start: 08-10-2023 Alcohol intake Current drinke r of alcohol (finding) [facility] Work Phone: Start: 08-10-2023 Tobacco use panel [facility] Work Phone: Start: 1970 Sex Assigned At Not on file U [facility] Work Phone: Start: 07-31-2023 End: 04-10-2024 Exposure to SARS-CoV-2 (event) Not sure [facility] Work Phone: History of Present illness Narrative 04-10-2024 Vinayak Vargas, DO - 04/10/2024 4:00 PM EDT Note Date & Type Note Facility 04-10-2024 History of Present illness Narrative Subjective Patient ID: Ez Pro is a 53 y.o. female who presents for Follow-up (EPI- pt has been denied/ copay too high for creon, and zenpep. Has tried OTC Papaya enzyme with minimal relief. Bloating, gas, light colored oily soft stools. ). HPI Patient seen today in follow-up. Unable to get either Zenpep or Creon not covered by insurance. Was lost to follow-up began using [id number] papaya supplements with no improvement. Reviewed colonoscopy lab work. Stool pancreatic elastase less than 100. Still having diarrhea. Worse with meat. Denies any weight loss. Review of Systems Constitutional: Negative. HENT: Negative. Eyes: Negative. Respiratory: Negative. Cardiovascular: Negative. Gastrointestinal: Positive for diarrhea. Endocrine: Negative. Genitourinary: Negative. Neurological: Negative. Hematological: Negative. Objective Physical Exam Vitals and nursing note reviewed. Constitutional: Appearance: Normal appearance. HENT: Head: Normocephalic. Mouth/Throat: Mouth: Mucous membranes are moist. Pharynx: Oropharynx is clear. Eyes: Conjunctiva/sclera: Conjunctivae normal. Pupils: Pupils are equal, round, and reactive to light. Cardiovascular: Rate and Rhythm: Normal rate and regular rhythm. Pulses: Normal pulses. Heart sounds: Normal heart sounds. Pulmonary: Effort: Pulmonary effort is normal. Breath sounds: Normal breath sounds. Abdominal: General: Abdomen is flat. Bowel sounds are normal. Palpations: Abdomen is soft. Musculoskeletal: General: Normal range of motion. Cervical back: Normal range of motion and neck supple. Skin: General: Skin is warm and dry. Neurological: General: No focal deficit present. Mental Status: She is alert and oriented to person, place, and time. Psychiatric: Behavior: Behavior normal. Assessment/Plan Diagnoses and all orders for this visit: Exocrine pancreatic insufficiency ([facility]) Will attempt to get Creon through patient assistance program Vinayak Vargas DO 04/10/24 4:34 PM documented in this encounter [facility] Work Phone: History and physical note 08-10-2023 Vinayak Vargas DO - 08/10/2023 1:50 PM EDT Note Date & Type Note Facility 08-10-2023 History and physical note History Of Present Illness Ez Pro is a 52 y.o. female presenting with chronic diarrhea presents for colonoscopy. Past Medical History She has a past medical history of Depression, DVT of lower extremity, bilateral (CMS/HCC), and Sleep apnea. Surgical History She has a past surgical history that includes ORIF forearm fracture and Ablation colpoclesis. Social History She reports that she quit smoking about 32 years ago. Her smoking use included cigarettes. She has never used smokeless tobacco. She reports current alcohol use of about 2.0 standard drinks of alcohol per week. She reports that she does not use drugs. Family History Family History Problem Relation Name Age of Onset Stroke Father Diabetes Father Hypertension Father Bone cancer Paternal Grandmother Allergies Patient has no known allergies. Review of Systems Gastrointestinal: Positive for diarrhea. All other systems reviewed and are negative. Physical Exam Constitutional: Appearance: Normal appearance. HENT: Head: Normocephalic and atraumatic. Mouth/Throat: Mouth: Mucous membranes are moist. Pharynx: Oropharynx is clear. Eyes: Conjunctiva/sclera: Conjunctivae normal. Pupils: Pupils are equal, round, and reactive to light. Cardiovascular: Rate and Rhythm: Normal rate and regular rhythm. Pulses: Normal pulses. Heart sounds: Normal heart sounds. Pulmonary: Effort: Pulmonary effort is normal. Breath sounds: Normal breath sounds. Abdominal: General: Abdomen is flat. Bowel sounds are normal. Palpations: Abdomen is soft. Musculoskeletal: Cervical back: Normal range of motion. Skin: General: Skin is warm and dry. Neurological: General: No focal deficit present. Mental Status: She is alert and oriented to person, place, and time. Last Recorded Vitals Blood pressure 114/69, pulse 53, temperature 36.8 C (98.2 F), temperature source Temporal, resp. rate 16, height 1.575 m (5' 2), weight 72.3 kg (159 lb 6.4 oz), SpO2 99 %. Relevant Results Assessment/Plan Active Problems: There are no active Hospital Problems. Problem List Items Addressed This Visit None Visit Diagnoses Encounter for screening for malignant neoplasm of colon - Primary Noninfective gastroenteritis and colitis, unspecified Relevant Orders Colonoscopy Screening I spent minutes in the professional and overall care of this patient. Vinayak Vargas DO [facility] Work Phone: History and physical note 08-10-2023 Vinayak Vargas DO - 08/10/2023 1:50 PM EDT Note Date & Type Note Facility 08-10-2023 History and physical note History Of Present Illness Ez Pro is a 52 y.o. female presenting with chronic diarrhea presents for colonoscopy. Past Medical History She has a past medical history of Depression, DVT of lower extremity, bilateral (CMS/HCC), and Sleep apnea. Surgical History She has a past surgical history that includes ORIF forearm fracture and Ablation colpoclesis. Social History She reports that she quit smoking about 32 years ago. Her smoking use included cigarettes. She has never used smokeless tobacco. She reports current alcohol use of about 2.0 standard drinks of alcohol per week. She reports that she does not use drugs. Family History Family History Problem Relation Name Age of Onset Stroke Father Diabetes Father Hypertension Father Bone cancer Paternal Grandmother Allergies Patient has no known allergies. Review of Systems Gastrointestinal: Positive for diarrhea. All other systems reviewed and are negative. Physical Exam Constitutional: Appearance: Normal appearance. HENT: Head: Normocephalic and atraumatic. Mouth/Throat: Mouth: Mucous membranes are moist. Pharynx: Oropharynx is clear. Eyes: Conjunctiva/sclera: Conjunctivae normal. Pupils: Pupils are equal, round, and reactive to light. Cardiovascular: Rate and Rhythm: Normal rate and regular rhythm. Pulses: Normal pulses. Heart sounds: Normal heart sounds. Pulmonary: Effort: Pulmonary effort is normal. Breath sounds: Normal breath sounds. Abdominal: General: Abdomen is flat. Bowel sounds are normal. Palpations: Abdomen is soft. Musculoskeletal: Cervical back: Normal range of motion. Skin: General: Skin is warm and dry. Neurological: General: No focal deficit present. Mental Status: She is alert and oriented to person, place, and time. Last Recorded Vitals Blood pressure 114/69, pulse 53, temperature 36.8 C (98.2 F), temperature source Temporal, resp. rate 16, height 1.575 m (5' 2), weight 72.3 kg (159 lb 6.4 oz), SpO2 99 %. Relevant Results Assessment/Plan Active Problems: There are no active Hospital Problems. Problem List Items Addressed This Visit None Visit Diagnoses Encounter for screening for malignant neoplasm of colon - Primary Noninfective gastroenteritis and colitis, unspecified Relevant Orders Colonoscopy Screening I spent minutes in the professional and overall care of this patient. Vinayak Vargas DO documented in this encounter [facility] Work Phone: History of Present illness Narrative 07-16-2023 Note Date & Type Note Facility 07-16-2023 History of Present illness Narrative 55-year-old female self-referred for chronic diarrhea states diarrhea began when she was adolescent years 6 grade. Is averaging 4-6 bowel movements daily with urgency and several episodes of incontinence weekly. She denies any rectal bleeding is identified raw vegetables and high roughage food is a trigger for diarrhea. She denies any issues with lactose, gluten or fructose.Family history positive for diarrhea in her mother no family history of colorectal cancer or inflammatory bowel disease.She states she underwent celiac testing 10 years ago at which point she had a colonoscopy and states at that time all testing was unremarkable.She denies any abdominal bloating does feel that her stools are loose and float on top of the water she denies any gallbladder issues and states that if she eats fatty or fried foods her symptoms are no worse and no better.She admits to having no major surgeries did have open fixation of elbow fracture several years ago and 1 child naturally. She does not smoke but drinks 1 alcoholic beverage weekly. She is unmarried.Father of complications from stroke, mother still living. [facility] Work Phone: History of Present illness Narrative 07-15-2023 Note Date & Type Note Facility 07-15-2023 History of Present illness Narrative 55-year-old female self-referred for chronic diarrhea states diarrhea began when she was adolescent years 6 grade. Is averaging 4-6 bowel movements daily with urgency and several episodes of incontinence weekly. She denies any rectal bleeding is identified raw vegetables and high roughage food is a trigger for diarrhea. She denies any issues with lactose, gluten or fructose.Family history positive for diarrhea in her mother no family history of colorectal cancer or inflammatory bowel disease.She states she underwent celiac testing 10 years ago at which point she had a colonoscopy and states at that time all testing was unremarkable.She denies any abdominal bloating does feel that her stools are loose and float on top of the water she denies any gallbladder issues and states that if she eats fatty or fried foods her symptoms are no worse and no better.She admits to having no major surgeries did have open fixation of elbow fracture several years ago and 1 child naturally. She does not smoke but drinks 1 alcoholic beverage weekly. She is unmarried.Father of complications from stroke, mother still living. [facility] [id number] Work Phone: Evaluation note Note Date & Type Note Facility Evaluation note No assessment information availa [facility] Work Phone: Evaluation note Note Date & Type Note Facility Evaluation note Diagnosis Encounter for screening for malignant neoplasm of colon- Primary Noninfective gastroenteritis and colitis, unspecified documented in this encounter [facility] Work Phone: Evaluation note Note Date & Type Note Facility Evaluation note Diagnosis Exocrine pancreatic insufficiency ([facility])- Primary Other specified disease of pancreas documented in this encounter [facility] Work Phone: Chief Complaint and Reason for Visit Chief Complaint SCREENING Family History No Family History Records Found Relationship Condition Age at Onset Recorded Date/T espinoza mother Depressive disorder Unknown father Diabetes mellitus Unknown Cerebrovascular disease Unknown Hypertension Unknown Unknown Family Member Name Dates Details Family history of diabetes m ellitus: Father(V18.0, Z83.3) Status:Active Family history of hypertensi on: Father(V17.49, Z82.49) Status:Active Family history of cerebrovas cular accident (CVA): Father(V17.1, Z82.3) Status:Active Family history of malignant neoplasm of bone: Paternal Grandmother(V16.8, Z80.8) Status:Active Unknown Family Member Name Dates Details Family history of diabetes m ellitus: Father(V18.0, Z83.3) Status:Active Family history of hypertensi on: Father(V17.49, Z82.49) Status:Active Family history of cerebrovas cular accident (CVA): Father(V17.1, Z82.3) Status:Active Family history of malignant neoplasm of bone: Paternal Grandmother(V16.8, Z80.8) Status:Active Unknown Family Member Name Dates Details Family history of diabetes m ellitus: Father(V18.0, Z83.3) Status:Active Family history of hypertensi on: Father(V17.49, Z82.49) Status:Active Family history of cerebrovas cular accident (CVA): Father(V17.1, Z82.3) Status:Active Family history of malignant neoplasm of bone: Paternal Grandmother(V16.8, Z80.8) Status:Active Advance Directives No Advanced Directives Records Found Advance Directive Response Recorded Date/ Time Advance Directives No May 15 5 8:08pm Living Will No April 10, 2019 1 2:19pm Power of Structural Manager No April 10, 2019 12:19pm Advance Directive Response Recorded Date/ Time Advance Directives No May 15 5 9:08pm Living Will No April 10, 2019 1 :19pm Power of Structural Manager No April 10, 2019 1:19pm Chief Complaint NPV in office today for chronic diarrhea x several years, lower abdominal pain, bloating. Hx of colonoscopy in [place] approx 10.5 years ago. Mother had similar issues growing up but pt doesn t know if she had been diagnosed with anything. NPV in office today for chronic diarrhea x several years, lower abdominal pain, bloating. Hx of colonoscopy in [place] approx 10.5 years ago. Mother had similar issues growing up but pt doesn t know if she had been diagnosed with anything. Summary Purpose Reason for Referral Specialty Diagnoses / Procedures Referred By Ayo t Referred To Contact Gastroenterology Diagnoses Noninfective gastroenteritis and colitis, unspecified Procedures Colonoscopy Screening Colonoscopy Screening Colonoscopy Screening [place] COLONOSCOPY FLX DX W/COLLJ SPEC WHEN PFRMD [place] COLON CA SCRN NOT HI RSK IND [place] COLORECTAL SCRN; HI RISK IND [place] COLONOSCOPY W/BIOPSY SINGLE/MULTIPLE [place] COLSC FLX W/RMVL OF TUMOR POLYP LESION SNARE TQ [place] COLSC FLX W/REMOVAL LESION BY HOT BX FORCEPS Vinayak Vargas DO [address] [facility], [facility] [address] [place] [address] Referral ID Status Reason Start Date Expiration Date V isits Requested Visits Authorized [id number] Authorized 07/22/2023 01/18/2024 1 1 Additional Source Comments Care Teams (unrecognized sec tion and content) Team Status: Active Member Role Status Dates Dr. Janeth Ferreira MD Family Provider Active Dr. Janeth Ferreira MD Primary Care Provider Active Team Status: Inactive Member Role Status Dates Dr. Janeth Ferreira MD Primary Care Prov ider, Attending Provider, Referring Provider Active Team Status: Inactive Member Role Status Dates Dr. Janeth Ferreira MD Primary Care Provider Active Dr. Vinayak Vargas DO Attending Provider, Referring Pro vider Active Team Status: Active Member Role Status Dates Dr. Janeth Ferreira MD Primary Care Provider Active Dr. Vinayak Vargas DO Attending Provider, Referring Pro vider Active Access Control Specialist Relationship Specialty Start Date End Date Generic Provider, No Assigned [facility] [address] [place] [address] PCP - General Family Medicine 07/24/23 Team Status: Inactive Member Role Status Dates Dr. Janeth Ferreira MD Primary Care Provider, Attendin g Provider Active Access Control Specialist Relationship Specialty Start Date End Date Vinayak Vargas DO [address] [facility], [facility] [address] [place] [address] [facility] 09/08/23 Janeth Ferreira MD [address] [place] [phone] PCP - General Family Medicine 04/10/24 Goals (unrecognized section and content) Goals may be documented in a n alternate sectionGoals may be documented in an alternate sectionGoals may be documented in an alternate section INFORMATION SOURCE (unrecogn ized section and content) DATE CREATED AUTHOR 07/16/2023 [facility] DATE CREATED AUTHOR AUTHOR'S ORGANIZ ATION 07/16/2023 [employer] DATE CREATED AUTHOR AUTHOR'S ORGANIZ ATION 08/29/2023 [facility] DATE CREATED AUTHOR AUTHOR'S ORGANIZ ATION 07/01/2024 [facility] DATE CREATED AUTHOR AUTHOR'S ORGANIZ ATION 11/29/2024 [facility] Reason for Visit (unrecogniz ed section and content) Specialty Diagnoses / Procedures Referred By Ayo riley Referred To Contact Diagnoses Noninfective gastroenteritis and colitis, unspecified Procedures COLONOSCOPY [id number] [address] [place] [phone] Referral ID Status Reason Start Date Expiration Date Visits Re quested Visits Authorized [id number] 1 1 Reason Comments Follow-up EPI- pt has been den ied/ copay too high for creon, and zenpep. Has tried OTC Papaya enzyme with minimal relief. Bloating, gas, light colored oily soft stools. FOR RECORDS PERTAINING TO PATIENTS WHO ARE OR HAVE BEEN ENROLLED IN A CHEMICAL DEPENDENCY/SUBSTANCEABUSE PROGRAM, SOME INFORMATION MAY BE OMITTED. This clinical summary was aggregated from multiple sources. Caution should be exercised in using it in the provision of clinical care. This summary normalizes information from multiple sources, and as a consequence, information in this document may materially change the coding, format and clinical context of patient data. In addition, data may be omitted in some cases. CLINICAL DECISIONS SHOULD BE BASED ON THE PRIMARY CLINICAL RECORDS. [facility] [employer] [facility]. provides no warranty or guarantee of the accuracy or completeness of information in this document.
[2025-11-03 12:06] LABS: Hematocrit 40.0 % (37-47); Hemoglobin 13.7 g/dL (12.0-15.0); Immature Granulocytes Count 0.020 X10^3/uL (0.0-0.0); Mean Corp Hgb Conc 34.3 g/dL (32-36); Mean Corpuscular Volume 92.2 fL (81-99); Mean Platelet Vol. 8.9 fl (6.2-12.0); NRBC Flagged by Analyzer 0 % (0-5); Platelet Count 346 K/mm3 (150-450); RBC Distribution Width CV 12.7 % (11.6-14.6); RBC Distribution Width SD 43.0 fl (35.1-43.9); Red Blood Count 4.34 M/mm3 (4.2-5.4); White Blood Count 7.0 K/mm3 (4.4-11.0)
[2025-11-03 13:34] LABS: AST(SGOT) 27 U/L (<=31); Alanine Aminotransfer ALT/SGPT 21 U/L (<=34); Albumin, Serum 4.1 g/dL (3.5-5.0); Alkaline Phosphatase 92 U/L (35-104); Anion Gap 10 (7-18); BUN 11 mg/dL (4-19); BUN/Creat Ratio 16.8 RATIO (10-20); Calcium,Total 9.0 mg/dL (7.6-11.0); Carbon Dioxide 24.4 mmol/L (20.0-29.0); Chloride 107 mmol/L (96-106); Globulin 3.2 g/dL (2.2-4.2); Glucose 89 mg/dL (70-99); Potassium 4.2 mmol/L (3.5-5.1)
== END | disposition home or self-care (01) ==
LOC: LAB 10:27
PROVIDERS: PCP Family Medicine; Referring Provider Family Medicine; Visit Provider Family Medicine
DX: Z00.00 Encounter for general adult medical examination without abnormal findings (principal); L65.9 Nonscarring hair loss, unspecified; K21.9 Gastro-esophageal reflux disease without esophagitis; Z79.01 Long term (current) use of anticoagulants
CPT/HCPCS: 36415; 80053; 84439; 84443; 85025